=== PATIENT | female | born 1975 | race Caucasian/White ===

== ENCOUNTER 2017-12-22 08:18 | Emergency (ER) | payer MEDICAID, SELFPAY ==
[2017-12-22 08:24] VITALS: BP 158/68; PULSE 69; RESP 18; TEMP 36.7; O2SAT 98
--- NOTE | 2017-12-24 10:51 | ED.GENADUL_ITS ---
Discharge Plan Disposition Patient Disposition: HOME Condition: Good Discharge Details Chief Complaint: DentalOral Clinical Impression: Pain, dental Primary Care Provider: Aidee Leon ED Provider: Rodrigo Rosen Home Meds and New Rx's Prescriptions: New acetaminophen [Mapap Extra Strength] 500 MG tablet 1,000 mg PO Q6H 5 Days Qty: 60 RF: 0 ibuprofen [Motrin IB] 200 MG tablet 600 mg PO Q6H 5 Days Qty: 60 RF: 0 amoxicillin-pot clavulanate [Augmentin] 875-125 mg tablet 1 tab PO BID Qty: 14 RF: 0 No Action ondansetron 4 MG tablet,disintegrating 4 mg PO TID PRN PRN (Reason: Nausea) Qty: 10 RF: 0 trazodone 50 mg Tablet 50 mg PO HS RF: 0 omeprazole 20 mg Tablet,Disintegrat, Delay Rel 20 mg PO DAILY RF: 0 Discharge Instructions Instructions: Toothache (ED) Additional Instructions: Please take the antibiotic as directed. Please follow-up with your dentist as soon as possible. Please take the Tylenol and Motrin. If you notice any worsening of your symptoms, or any new symptoms such as vomiting, diarrhea, fever, chills, shortness of breath, chest pain, numbness, weakness, or fainting , please return immediately to the emergency department for reevaluation. Please follow up with your primary care provider as soon as possible for reassessment and reevaluation. As always, it was a pleasure participating in your medical care today. Referrals: Aidee Leon [Primary Care Provider] - Discharge Data Discharge Date/Time-TO BE ENTERED AT DEPARTURE: 12/22/17 09:20 Medical Decision Making This is a pleasant 42-year-old female who presents with signs and symptoms consistent with dental caries and pulpitis. She demonstrates notable dental caries and is scheduled to have her tooth removed later this month. She comes in for control of the pain. Physical exam demonstrates no signs of an abscess, vital signs demonstrate no signs of systemic infection with no fever or tachycardia. Patient will be given antibiotics for her dental caries, a right inferior alveolar block was performed and the patient had complete resolution of her symptoms. We discussed red flags for which to return including the importance of close follow-up, and continue Tylenol Motrin use. I have extensively reviewed the treatment plan and discharge instructions with the patient. I have addressed all patient concerns at this time. The patient was made aware of what symptoms to monitor for that would warrant a return to the emergency department. Discussed the plan with the patient, they demonstrate verbal understanding and agreement with our assessment and plan at this time. Time out was taken to identify the correct patient, procedure, and site. Risks and benefits were discussed with the patient and consent was obtained. Direct pressure was held over the area prior to the procedure to reduce painful injection. 5 cc?s of Lidocaine 1% and Bupivacaine 0.25% was instilled into the right lower posterior alveolar space by the angle of the jaw with a 27 gauge needle. Complete analgesia was obtained. The patient tolerated the procedure. There were no complications. HPI General Date/Time Provider Initiated Documentation: 12/22/17 08:55 . HPI Narrative: This is a 42-year-old female with a past medical history of dental caries who presents today for evaluation of dental pain. Patient states that for the last 4 days she has had pain in her right lower molar. She has had previous issues with this tooth is scheduled to get it pulled by her dentist. However she states that over the last 24-48 hours the pain has become notably worse. She denies any significant swelling or fevers, however she is having difficulty eating secondary to the pain. She is coming in requesting relief of the pain. Denies any discharge, or any other associated symptoms. She denies any headache, fever, chills, vomiting, diarrhea , chest pain or shortness of breath. She denies any recent surgeries. She denies any pertinent family history. She denies any IV or illicit drug use. Related Data Home Medications Medication Instructions Recorded Confirmed ondansetron 4 mg PO TID PRN PRN #10 tabef 06/23/17 acetaminophen [Mapap Extra 1,000 mg PO Q6H 5 Days #60 tab 12/22/17 Strength] amoxicillin-pot clavulanate 1 tab PO BID #14 tab 12/22/17 [Augmentin] ibuprofen [Motrin Ib] 600 mg PO Q6H 5 Days #60 tab 12/22/17 omeprazole 20 mg PO DAILY 12/22/17 12/22/17 trazodone 50 mg PO HS 12/22/17 12/22/17 Previous Rx's Medication Instructions Recorded ondansetron 4 mg PO TID PRN PRN #10 tabef 06/23/17 acetaminophen [Mapap Extra 1,000 mg PO Q6H 5 Days #60 tab 12/22/17 Strength] amoxicillin-pot clavulanate 1 tab PO BID #14 tab 12/22/17 [Augmentin] ibuprofen [Motrin Ib] 600 mg PO Q6H 5 Days #60 tab 12/22/17 Allergies Allergy/AdvReac Type Severity Reaction Status Date / Time doxycycline Allergy Intermediate shakes/hive Unverified 12/22/17 08:28 s General Stated Complaint: DentalOral HARVEY: 4 Review of Systems Review of Systems All systems reviewed & are unremarkable except as noted in HPI and below PFSH Social History Smoking/Tobacco Use Status: Current every day Exam Narrative Exam Narrative: 1.Const: Well-nourished, Well-developed, appearing stated age 2.Eyes: PERRL, no conjunctival injection, and symmetrical lids. 3.ENT: Atraumatic external nose and ears. Moist MM. Neck: Symmetric, trachea midline, No thyromegaly. Patient demonstrates notable dental caries throughout , 2-3 notable dental caries are present in the right lower molars over tooth 30 and 31. No evidence of peritonsillar abscess, dental abscess, fluctuance, or significant swelling. No significant cervical lymphadenopathy. No signs of airway compromise. 4.CVS: +S1/S2, No murmurs or gallops. Peripheral pulses 2+ and equal in all extremities. Brisk capillary refill in all extremities. 5.RESP: Unlabored respiratory effort. Clear to auscultation bilaterally. No wheezes rales or rhonchi 6.GI: Soft, Nontender/Nondistended, No hepatosplenomegaly. No guarding or rebound. 7.MSK: Normocephalic/Atraumatic, Extremities w/o deformity or ttp No cyanosis or clubbing, Normal movement of all extremities 8.Skin: Warm, Dry. No rashes or lesions. 9.Neuro: carbon electrodes supervisor II-XII grossly intact. Sensation grossly intact, no focal neurologic deficits. 10.Psych: (AAO) x3. Appropriate mood and affect Course Vital Signs Temperature 36.7 C 12/22/17 08:24 Pulse 69 12/22/17 08:24 Respiratory Rate 18 12/22/17 08:24 Blood Pressure 158/68 H 12/22/17 08:24 Pulse Oximetry 98 12/22/17 08:24 Temperature 36.7 C 12/22/17 08:24 Temperature Source Skin 12/22/17 08:24 Pulse 69 12/22/17 08:24 Respiratory Rate 18 12/22/17 08:24 Respiratory Effort 12/22/17 08:26 Blood Pressure 158/68 H 12/22/17 08:24 Blood Pressure Position Sitting 12/22/17 08:24 Pulse Oximetry 98 12/22/17 08:24 Oxygen Delivery Method Room Air 12/22/17 08:24 Oxygen Flow Rate 0 12/22/17 08:24 Pain Level 10 12/22/17 09:18
== END 2017-12-22 09:20 | disposition home or self-care (01) ==
PROVIDERS: Emergency Provider Student in an Organized Health Care Education/Training Program; PCP Nurse Practitioner
DX: R68.84 Jaw pain (principal); S02.5XXA Fracture of tooth (traumatic), initial encounter for closed fracture; X58.XXXA Exposure to other specified factors, initial encounter; K02.9 Dental caries, unspecified
CPT/HCPCS: 99283

== ENCOUNTER 2020-02-21 19:17 | Outpatient (REF) | payer MEDICAID, SELFPAY ==
[2020-02-24 17:50] LABS: COVID-19 RT-PCR UVMMC Result Negative (Negative)
== END 2020-02-21 19:37 ==
LOC: NCHCN 19:17
PROVIDERS: PCP Nurse Practitioner; Visit Provider Nurse Practitioner Family
DX: Z20.828 Contact with and (suspected) exposure to other viral communicable diseases (principal)
CPT/HCPCS: U0003

== ENCOUNTER 2020-04-22 07:51 | Emergency (ER) | payer MEDICAID, SELFPAY ==
[2020-04-22 08:09] VITALS: BP 147/99; PULSE 73; RESP 16; TEMP 36.6; O2SAT 99
--- NOTE | 2020-04-22 08:25 | W.ED.GENAD ---
Discharge Plan Disposition Patient Disposition: HOME Condition: Good Discharge Details Clinical Impression: Back pain Primary Care Provider: Aidee Leon ED Provider: Amina Rao Home Meds and New Rx's Prescriptions: New cyclobenzaprine 10 mg tablet 10 mg PO TID PRNQty: 12 RF: 0 lidocaine [Lidoderm] 5 % adhesive patch,medicated 1 patch topical DAILY Qty: 1 RF: 0 Discharge Instructions Instructions: Back Pain (ED) Additional Instructions: Ibuprofen 600 mg every 8 hours with food Tylenol 650 mg every 6 hours Flexeril for musculoskeletal pain, you may take this 3 times daily, do not take this medication if you have to drive, you should wait 8 hours as it will make you drowsy Lidoderm patch, 12 hours on, 12 hours off, you may apply cool compresses or warm baths may help alleviate your symptoms Light stretching may help Should you have pain longer than 4 minutes 5 to 7 days, I recommend reevaluation With fever, chills, chest discomfort, strength or sensation changes, changes in bowel or bladder shortness of breath, or with any new or worsening complaints, I recommend you return to the emergency room blood pressure recheck by pcp Stand Alone Forms: Work Release Medical Decision Making Patient appears well, she has reproducible tenderness of the back No clinical evidence of cauda equina syndrome or lumbar radiculopathy Suspect pain is musculoskeletal nature: Clear to auscultation, Wells criteria negative for pulmonary embolism and low suspicion clinically without hypoxia, tachypnea, active asthma for months, or recent flights, surgeries, long drives, history of coagulopathy On prior to auscultation bilaterally, no cough or upper respiratory sounds, low suspicion for respiratory illness such as pneumonia She is given low threshold to return and to be reevaluated in 1 week with persistent symptoms, with worsening symptoms which were discussed with patient, she is instructed to return immediately to the emergency room She is discharged home on Flexeril, ibuprofen, Tylenol, and Lidoderm patches in stable condition Blood pressure recheck by primary care physician in the outpatient setting recommended Abdominal tenderness appreciated on exam, question for intra-abdominal process clinically Differential Diagnosis Differential Diagnosis: Musculoskeletal back pain, cholecystitis, pulmonary embolism, pneumonia Medical Records Medical records reviewed: Yes I reviewed the patient's medical records. HPI This 44-year-old female presents with report of right-sided mid back pain. She states she started a new job the weekend the and believes that her chair is causing her back pain. She states that the pain started approximately 24 hours after starting at this position. She states that at the end of the day her pain is worsened. She denies any chest pain, shortness of breath, fever, chills, strength or sensation changes, changes in bowel or bladder. She denies.. Similar pain in the past. Denies abdominal pain, nausea, vomiting, hematuria, dysuria, freq. Denies prior history of ureterolithiasis. She states that with twisting motion, bending, and particularly with flexion of her back and extension, the pain is worsened. She denies history of IV drug abuse, midline back pain, known trauma to the affected area. She denies any radiation of symptoms. General Date/Time Provider Initiated Documentation: 04/22/20 08:04. Related Data Home Medications Medication Instructions Recorded Confirmed cyclobenzaprine 10 mg PO TID PRN #12 tab 04/22/20 lidocaine [Lidoderm] 1 patch TOPICAL DAILY #1 ea 04/22/20 Previous Rx's Medication Instructions Recorded cyclobenzaprine 10 mg PO TID PRN #12 tab 04/22/20 lidocaine [Lidoderm] 1 patch TOPICAL DAILY #1 ea 04/22/20 Allergies Allergy/AdvReac Type Severity Reaction Status Date / Time doxycycline Allergy Intermediate shakes/hive Unverified 12/22/17 08:28 s General Stated Complaint: Nk/Back Pain HARVEY: 4 Review of Systems Narrative: Review of systems negative x7 aside from where indicated in [facility]PI [facility] Social History Smoking/Tobacco Use Status: Current every day Smoking risk assessment performed?: Yes Alcohol Intake: current Alcohol Intake frequency: holidays/special occasions only Drug use: Occasionally Substance use type: marijuana Do you feel safe at home: Yes Do you feel safe in your relationship?: Yes Exam Const General: cooperative, healthy appearing and no acute distress Chest Chest: no crepitus Resp Effort & Inspection: normal respiratory effort Auscultation: clear to auscultation bilaterally Cardio Rate: regular rate Rhythm: regular rhythm GI Inspection: normal to inspection Other: Specifically no right upper quadrant tenderness, no CVA tenderness, no visible sign of trauma, No abdominal bruit or pulsatile mass Back/Spine/Pelvis Back/spine/pelvis image: 1. Reproducible tenderness with palpation, superficial No paraspinal muscle tenderness or midline tenderness Skin General skin exam: no rashes or lesions noted Neuro Other: DTRs intact bilateral upper and lower extremities, strength and sensation intact in bilateral upper and lower extremities Course Vital Signs Vital signs: Vital Signs Temperature 36.6 C 04/22/20 08:09 Pulse 73 04/22/20 08:09 Respiratory Rate 16 04/22/20 08:09 Blood Pressure 147/99 H 04/22/20 08:09 Pulse Oximetry 99 04/22/20 08:09 Temperature 36.6 C 04/22/20 08:09 Temperature Source Skin 04/22/20 08:09 Pulse 73 04/22/20 08:09 Respiratory Rate 16 04/22/20 08:09 Respiratory Effort 04/22/20 08:11 Blood Pressure 147/99 H 04/22/20 08:09 Blood Pressure Position Standing 04/22/20 08:09 Pulse Oximetry 99 04/22/20 08:09 Oxygen Delivery Method Room Air 04/22/20 08:09 Oxygen Flow Rate 0 04/22/20 08:09 Pain Level 8 04/22/20 08:09
[2020-04-22] MEDS: Cyclobenzaprine 10 MG TAB PO (08:32)
[2020-04-22] MEDS: Lidocaine 5% Patch 1 PATCH TP (08:32)
[2020-04-22] MEDS: Ketorolac 15 MG/ML VIAL IM (08:33)
== END 2020-04-22 08:45 | disposition home or self-care (01) ==
PROVIDERS: Emergency Provider Physician Assistant; PCP Nurse Practitioner
DX: M54.9 Dorsalgia, unspecified (principal)
CPT/HCPCS: 96372; 99283; J1885

== ENCOUNTER 2020-07-09 11:18 | Outpatient (REF) | payer MEDICAID, SELFPAY ==
[2020-07-10 15:14] LABS: COVID-19 RT-PCR UVMMC Result Negative (Negative)
== END 2020-07-09 11:19 | disposition home or self-care (01) ==
LOC: NCHCN 11:18
PROVIDERS: PCP Nurse Practitioner; Visit Provider Nurse Practitioner Family
DX: Z20.822 Contact with and (suspected) exposure to COVID-19 (principal)
CPT/HCPCS: U0003

== ENCOUNTER 2021-03-03 12:10 | Outpatient (REF) | payer MEDICAID, SELFPAY ==
[2021-03-03 14:43] LABS: HCT 41.1 % (36.0-46.0); HGB 13.4 g/dL (11.2-15.7); MCH 27.4 pg (27.0-33.0); MCHC 32.6 % (32.0-36.0); MPV 11.4 fL (8.0-11.0); Platelet Count 346 10^3/uL (130-400); RBC 4.89 10^6/uL (3.93-5.22); RDW 15.4 % (11.7-14.6); RDW-SD 46.7 fL; WBC 8.56 10^3/uL (4.4-10.8)
[2021-03-03 15:24] LABS: Anion Gap 13.2 mmol/L (3-11); BUN 14 mg/dL (7-18); CO2 20.8 mmol/L (21.0-32.0); Calcium 9.3 mg/dL (8.5-10.1); Chloride 105 mmol/L (98-107); Estimated GFR 59.96 (mL/min/1.73m2); Glucose 91 mg/dL (74-106); Potassium 4.3 mmol/L (3.5-5.1); Sodium 139 mmol/L (136-145); TSH (W/Ref FT4) 1.44 uIU/mL (0.36-3.74)
[2021-03-04 00:24] LABS: Vitamin D 25 Total 17.5 ng/mL (30-100)
[2021-03-04 10:04] LABS: Iron 83 ug/dL (50-170); Total Iron Binding Capacity 383 ug/dL (250-450); Transferrin Sat 22 % (15-50)
== END 2021-03-03 12:11 | disposition home or self-care (01) ==
LOC: NCHCN 12:10
PROVIDERS: PCP Nurse Practitioner; Visit Provider Nurse Practitioner Family
DX: R53.83 Other fatigue (principal)
CPT/HCPCS: 80048; 82306; 85027; 83540; 83550; 84443

== ENCOUNTER 2021-05-03 11:02 | Outpatient (CLI) | payer MEDICAID, SELFPAY ==
--- NOTE | 2021-05-03 09:30 | DI.RAD_ITS ---
Exam(s) XR HAND RT COMPLETE EXAM: XR HAND RT COMPLETE CLINICAL HISTORY: right middle finger trigger. TECHNIQUE: 2D digital imaging was performed. COMPARISON: No exams were available for comparison FINDINGS: BONES: No acute fracture is present. No bony destructive lesion is seen. JOINTS: No dislocation present. SOFT TISSUE: Normal. IMPRESSION: Unremarkable radiographs of the right hand. DATA REPOSITORY: RADIATION DOSE DELIVERED:
== END 2021-05-03 11:03 | disposition home or self-care (01) ==
LOC: DIORS 11:03
PROVIDERS: PCP Nurse Practitioner; Referring Provider Nurse Practitioner; Visit Provider Physician Assistant
DX: M65.331 Trigger finger, right middle finger (principal)
CPT/HCPCS: 73130

== ENCOUNTER 2021-05-11 10:27 | Emergency (ER) | payer MEDICAID, SELFPAY ==
[2021-05-11 10:34] VITALS: BP 148/87; PULSE 59; RESP 16; O2SAT 99
[2021-05-11 10:37] VITALS: BP 149/87; PULSE 75
--- NOTE | 2021-05-11 11:02 | DI.US_ITS ---
Exam(s) US PELVIS TRANSVAGINAL EXAM: US PELVIS TRANSVAGINAL CLINICAL HISTORY: pelvic pain, menorrhagia, dysmenorrhea TECHNIQUE: Ultrasound of the pelvis was performed both transabdominal and transvaginal. COMPARISON: CT ABD PELVIS WITH CONTRAST from 06/23/2017 FINDINGS: UTERUS: Retroverted Measures 10 cm length x 5.6 cm AP x 5.8 cm wide. There are no uterine fibroids. Endometrial thickness measures 3.8 mm. There is a finding in the endometrium at the level the fundus which is possibly a polyp measuring approximately 7 x 3 millimeters. There is small amount of fluid in the endometrial canal. There is also a somewhat complex appearance of the lower uterine segment which is possibly related to blood products at this level RIGHT OVARY: Measures 2.9 x 1.6 x 3.0 cm There is a cyst in the right ovary measuring 1.4 x 1.5 x 1.8 cm, appearing unilocular. There is a sm all amount of fluid around the right ovary. LEFT OVARY: Measures 3.2 x 2.2 x 2.2 cm No significant cysts nor masses evident in the left ovary. CUL-DE-SAC: Small amount of fluid noted within the cul-de-sac IMPRESSION: 1. Possible polyp in the upper endometrium and small amount of fluid in the endometrial canal and com plex contents of the lower uterine segment which probably represent blood products. 2. There is a 1.5 x 1.8 x 1.4 cm cyst in the right ovary which is probably follicular dominant cyst. 3. There is small amount of fluid around the right ovary and in the cul-de-sac. Appropriate follow-up recommended. DATA REPOSITORY:
[2021-05-11] MEDS: Normal Saline 500 ML IV (11:23)
[2021-05-11 11:26] LABS: Abs Immature Grans 0.02 10^3/uL (0.0-0.06); Absolute Basophil Count 0.07 10^3/uL (0.0-0.2); Absolute Eosinophil Count 0.13 10^3/uL (0.0-0.7); Absolute Lymphocyte Count 2.16 10^3/uL (1.2-3.4); Absolute Monocyte Count 0.56 10^3/uL (0.1-0.8); Absolute Neutrophil Count 4.23 10^3/uL (1.2-6.7); Eosinophils % 1.8; HCT 38.5 % (36.0-46.0); HGB 12.9 g/dL (11.2-15.7); Immature Grans % 0.3; Lymphocytes % 30.1; MCHC 33.5 % (32.0-36.0); MCV 83.5 fL (80-95); MPV 10.7 fL (8.0-11.0); Monocytes % 7.8; Nucleated RBC 0 %; Platelet Count 311 10^3/uL (130-400); RBC 4.61 10^6/uL (3.93-5.22); RDW 14.6 % (11.7-14.6); RDW-SD 44.3 fL; WBC 7.17 10^3/uL (4.4-10.8)
[2021-05-11] MEDS: Lidocaine 5% Patch 2 PATCH TP (11:27)
[2021-05-11 11:32] VITALS: BP 121/81; PULSE 51; O2SAT 98
[2021-05-11 11:42] LABS: ALT 34 U/L (14-59); AST 15 U/L (15-37); Albumin 3.7 g/dL (3.4-5.0); Alkaline Phosphatase 64 U/L (46-116); Anion Gap 10.4 mmol/L (3-11); BUN 11 mg/dL (7-18); Bilirubin, Total 0.3 mg/dL (0.2-1.0); CO2 21.6 mmol/L (21.0-32.0); CREATININE 0.9 mg/dL (0.55-1.02); Calcium 9.1 mg/dL (8.5-10.1); Chloride 108 mmol/L (98-107); Glucose 97 mg/dL (74-106); Potassium 4.2 mmol/L (3.5-5.1); Sodium 140 mmol/L (136-145); Total Protein 7.2 g/dL (6.4-8.2)
--- NOTE | 2021-05-11 11:58 | ED.GENADUL_ITS ---
Discharge Plan Disposition Patient Disposition: HOME Condition: Stable Discharge Details Clinical Impression: Ovarian cyst rupture Primary Care Provider: Aidee Leon ED Provider: Amina Rao Home Meds and New Rx's Prescriptions: Continued medroxyprogesterone [Depo-Provera] 150 mg/mL syringe 150 mg IM .Q13W 0RF cyclobenzaprine 10 mg tablet 10 mg PO TID PRNQty: 12 0RF lidocaine [Lidoderm] 5 % adhesive patch,medicated 1 patch topical DAILY Qty: 1 0RF Rx Instructions: leave on most painful area for up to 12 hrs cholecalciferol (vitamin D3) [Vitamin D3] 25 mcg (1,000 unit) Capsule 25 mcg PO DAILY 0RF Discharge Instructions Instructions: Ovarian Cyst (ED) Additional Instructions: Take ibuprofen and Tylenol as needed for pain I am writing for Lidoderm patches should you need them Please follow-up with [facility] listed below and return earlier should you have new or worsening complaints including new or worsening complaints Stand Alone Forms: Work Release Referrals: Zoya Mendosa MD [ [facility] STAFF PHYSICIAN] - Aidee Leon [Primary Care Provider] - Discharge Data Discharge Date/Time-TO BE ENTERED AT DEPARTURE: 05/11/21 13:54 Medical Decision Making Patient with free fluid on her ultrasound, likely consistent with ovarian cyst rupture Hemodynamically stable Mildly thickened endometrium Referred to [facility] 1 pad throughout this encounter, no indication for emergent intervention We will take ibuprofen and Tylenol as needed for pain For quadrant for pain uncontrolled with ibuprofen and Tylenol Risk of addiction discussed Return precautions discussed and patient expressed understanding Of note, patient was mildly bradycardic, she is asymptomatic and I suspect this is her baseline Blood in urine, likely consistent with menses, will recheck with PCP Medical Records Medical records reviewed: Yes I reviewed the patient's medical records. Lab Data Lab results reviewed: Yes I reviewed the patient's lab results. HPI General Date/Time Provider Initiated Documentation: 05/11/21 10:30 . HPI Narrative: 45-year-old female presents with lower abdominal pain in the suprapubic region. Patient states that she started her menses 24 hours ago. In a monogamous relationship, declines risk of sexually transmitted disease denies any fever, diarrhea, blood in stool. She states she is having large clots approximately quarter size but has not gone through more than 2 or 3 pads or tampons since the onset of menses. She states that the cough very typical for her. She did have a Depo shot approximately few months ago, however this is not a new medication for patient. She denies any chance of . She describes the pain as cramping. She denies any urinary symptoms. Related Data Home Medications Medication Instructions Recorded Confirmed cyclobenzaprine 10 mg tablet 10 mg PO TID PRN #12 tab 04/22/20 05/03/21 lidocaine 5 % topical patch 1 patch TOPICAL DAILY #1 ea 04/22/20 05/03/21 (Lidoderm) medroxyprogesterone 150 mg/mL 150 mg IM .Q13W ml 03/11/21 05/11/21 intramuscular syringe (Depo-Provera) cholecalciferol (vitamin D3) 25 25 mcg PO DAILY 05/11/21 05/11/21 mcg (1,000 unit) capsule (Vitamin D3) Previous Rx's Medication Instructions Recorded cyclobenzaprine 10 mg tablet 10 mg PO TID PRN #12 tab 04/22/20 lidocaine 5 % topical patch 1 patch TOPICAL DAILY #1 ea 04/22/20 (Lidoderm) Allergies Allergy/AdvReac Type Severity Reaction Status Date / Time doxycycline Allergy Intermediate shakes/hive Unverified 05/11/21 10:40 s General Stated Complaint: Abd Prob HARVEY: 3 Review of Systems All systems reviewed & are unremarkable except as noted in HPI and below PFSH All Active Problems (Updated 05/11/21 @ 13:40 by EMELI Ferrera) Ovarian cyst rupture (Acute) Trigger middle finger of right hand (Acute) Depo-Medrol injection: 05/03/2021 Fatigue (Acute) Medical History (Updated 05/11/21 @ 13:40 by EMELI Ferrera) Anxiety with depression Clostridioides difficile infection Diverticulitis Dupuytren's disease GERD (gastroesophageal reflux disease) History of HPV infection Hx gestational diabetes Hx of carpal tunnel syndrome Infectious disease exposure Insomnia Reflux esophagitis Social History (Updated 03/11/21 @ 09:46 by Heike Moseley) Smoking/Tobacco Use Status: Former Tobacco Use Smoking risk assessment performed?: Yes Alcohol Intake: current Alcohol Intake frequency: holidays/special occasions only Drug use: Occasionally Substance use type: marijuana Do you feel safe at home: Yes Do you feel safe in your relationship?: Yes Exam Const General: cooperative, comfortable and no acute distress Eyes Sclera: sclerae normal Resp Effort & Inspection: normal respiratory effort Cardio Rate: regular rate GI Other: Suprapubic tenderness, no rebound or guarding, no CVA tenderness Skin General skin exam: no rashes or lesions noted Neuro General: patient alert Extrem Other: Distal pulses intact Course Vital Signs Vital signs: Vital Signs Pulse 59 L 05/11/21 10:34 Respiratory Rate 16 05/11/21 10:34 Blood Pressure 148/87 H 05/11/21 10:34 Pulse Oximetry 99 05/11/21 10:34 Pulse 51 L 05/11/21 11:32 Respiratory Rate 16 05/11/21 10:34 Respiratory Effort Non-Labored 05/11/21 10:42 Blood Pressure 121/81 05/11/21 11:32 Blood Pressure Mean 91 05/11/21 11:32 Blood Pressure Position Sitting 05/11/21 10:34 Pulse Oximetry 98 05/11/21 11:32 Oxygen Delivery Method Room Air 05/11/21 10:34 Oxygen Flow Rate 0 05/11/21 10:34 Lab/Test Results Lab/Test Results: Laboratory Tests Range/Units 05/11/21 05/11/21 11:15 11:15 WBC (4.4-10.8) 10^3/uL 7.17 RBC (3.93-5.22) 10^6/uL 4.61 Hgb (11.2-15.7) g/dL 12.9 Hct (36.0-46.0) % 38.5 MCV (80-95) fL 83.5 MCH (27.0-33.0) pg 28.0 MCHC (32.0-36.0) % 33.5 RDW (11.7-14.6) % 14.6 Plt Count (130-400) 10^3/uL 311 MPV (8.0-11.0) fL 10.7 Immature Gran % 0.3 Neutrophils % 59.0 Lymphocytes % 30.1 Monocytes % 7.8 Eosinophils % 1.8 Basophils % 1.0 Nucleated RBC % % 0 Absolute Neutrophils (1.2-6.7) 10^3/uL 4.23 Absolute Lymphocytes (1.2-3.4) 10^3/uL 2.16 Absolute Monocytes (0.1-0.8) 10^3/uL 0.56 Absolute Eosinophils (0.0-0.7) 10^3/uL 0.13 Absolute Basophils (0.0-0.2) 10^3/uL 0.07 Sodium (136-145) mmol/L 140 Potassium (3.5-5.1) mmol/L 4.2 Chloride (98-107) mmol/L 108 H Carbon Dioxide (21.0-32.0) mmol/L 21.6 Anion Gap (3-11) mmol/L 10.4 BUN (7-18) mg/dL 11 Creatinine (0.55-1.02) mg/dL 0.9 Estimated GFR/1.73 m2 (mL/min/1.73m2) >= 60.00 Glucose (74-106) mg/dL 97 Calcium (8.5-10.1) mg/dL 9.1 Total Bilirubin (0.2-1.0) mg/dL 0.3 AST (15-37) U/L 15 ALT (14-59) U/L 34 Alkaline Phosphatase (46-116) U/L 64 Total Protein (6.4-8.2) g/dL 7.2 Albumin (3.4-5.0) g/dL 3.7 POC- Test(urine) Negative
[2021-05-11 12:04] LABS: Bilirubin Negative (Negative); Blood Moderate (Negative); Clarity Clear (Clear); Glucose Negative (Negative); Ketones Negative (Negative); Leukocyte Esterase Negative (Negative); Nitrite Negative (Negative); Specific Gravity >= 1.030 (1.005-1.025); Urobilinogen 0.2 EU/dL (Up TO 0.2); pH 6.5 (5-8)
[2021-05-11 12:19] LABS: Bacteria Negative HPF (Negative); C & S Indicated? No; Casts Negative LPF (Negative); Crystals Negative HPF (Negative); Epithelial Cells Rare HPF (Negative); Mucus Trace (Negative); WBC Negative HPF (0-5)
[2021-05-11] MEDS: Ketorolac 15 MG/ML VIAL IVP (13:28)
[2021-05-11 13:39] VITALS: BP 121/81; PULSE 51; RESP 14; TEMP 36.7; O2SAT 98
== END 2021-05-11 13:54 | disposition home or self-care (01) ==
PROVIDERS: Emergency Provider Physician Assistant; PCP Nurse Practitioner Family
DX: N83.291 Other ovarian cyst, right side (principal); R93.89 Abnormal findings on diagnostic imaging of other specified body structures
CPT/HCPCS: 80053; 81025; 96361; 96374; 99284; 76830; 76856; 81003; 81015; 85025; 99283; J1885

== ENCOUNTER → 2021-06-28 02:35 | Outpatient (CLI) | payer MEDICAID, SELFPAY | PROVIDERS: PCP Nurse Practitioner Family; Visit Provider Obstetrics & Gynecology ==

== ENCOUNTER 2021-08-05 07:49 | Emergency (ER) | payer MEDICAID, SELFPAY ==
[2021-08-05 07:56] VITALS: BP 154/87; PULSE 99; RESP 16; TEMP 36.9; O2SAT 97
--- NOTE | 2021-08-05 08:08 | ED.GENADUL_ITS ---
Discharge Plan Disposition Patient Disposition: HOME Condition: Stable Discharge Details Clinical Impression: Exudative pharyngitis Primary Care Provider: Subha Parker ED Provider: Shahid Olvera Home Meds and New Rx's Prescriptions: New penicillin V potassium 500 mg tablet 500 mg PO TID 9 Days Qty: 27 0RF Continued medroxyprogesterone [Depo-Provera] 150 mg/mL syringe 150 mg IM .Q13W Qty: 1 4RF Rx Instructions: Bring to appt lidocaine [Lidoderm] 5 % adhesive patch,medicated 1 patch topical DAILY Qty: 1 0RF Rx Instructions: leave on most painful area for up to 12 hrs cholecalciferol (vitamin D3) [Vitamin D3] 25 mcg (1,000 unit) Capsule 25 mcg PO DAILY Discharge Instructions Instructions: Pharyngitis (ED) Additional Instructions: Small, frequent sips of fluids to maintain good hydration. I recommend popsicles as well. Xeie-eft-[id number] lozenges such as Cepacol will aid your sore throat. Take penicillin as prescribed until finished. Every 6 hours today and then 3 times per day. Return to the ER for any acute concerns Medical Decision Making 45-year-old female presents with right-sided sore throat for 2 days. No cough or respiratory symptoms. She does have some mild right ear pain. Her exam is consistent with acute right-sided exudative pharyngitis without evidence of abscess development. Patient counseled and placed on penicillin. She is instructed as to home care as well as indications to seek reevaluation. Stable for discharge. HPI General Mode of arrival: ambulatory . Date/Time Provider Initiated Documentation: 08/05/21 07:58 . Limitations to Documentation: no limitations . Information obtained by: patient . History of Present Illness 45 year old F presents to the emergency department with the chief complaint of Right sore throat, described as moderate, Quality is described as dull and constant, and is localized to the mouth and right. Patient reports no radiation. Patient started experiencing this hour(s) and it has been constant. No relieving factors improve symptom(s), No exacerbating factors reported . Patient notes denies chest pain and cough. Related Data Home Medications Medication Instructions Recorded Confirmed lidocaine 5 % topical patch 1 patch topical DAILY #1 ea 04/22/20 08/05/21 (Lidoderm) cholecalciferol (vitamin D3) 25 25 mcg PO DAILY 05/11/21 08/05/21 mcg (1,000 unit) capsule (Vitamin D3) medroxyprogesterone 150 mg/mL 150 mg IM .Q13W #1 mL 05/14/21 08/05/21 intramuscular syringe (Depo-Provera) penicillin V potassium 500 mg 500 mg PO TID 9 days #27 tabs 08/05/21 tablet Previous Rx's Medication Instructions Recorded lidocaine 5 % topical patch 1 patch topical DAILY #1 ea 04/22/20 (Lidoderm) medroxyprogesterone 150 mg/mL 150 mg IM .Q13W #1 mL 05/14/21 intramuscular syringe (Depo-Provera) penicillin V potassium 500 mg 500 mg PO TID 9 days #27 tabs 08/05/21 tablet Allergies Allergy/AdvReac Type Severity Reaction Status Date / Time doxycycline Allergy Intermediate shakes/hive Verified 08/05/21 08:01 s General Stated Complaint: Sorethroat HARVEY: 4 Review of Systems Narrative: 6 systems reviewed and otherwise negative PFSH All Active Problems Exudative pharyngitis (Acute) Trigger middle finger of right hand (Acute) Depo-Medrol injection: 05/03/2021 Fatigue (Acute) Medical History Anxiety with depression Clostridioides difficile infection Contraceptive surveillance Diverticulitis Dupuytren's disease GERD (gastroesophageal reflux disease) History of HPV infection Hx gestational diabetes Hx of carpal tunnel syndrome Infectious disease exposure Insomnia Reflux esophagitis Social History Smoking/Tobacco Use Status: Former Tobacco Use Smoking risk assessment performed?: Yes Alcohol Intake: current Alcohol Intake frequency: holidays/special occasions only Drug use: Daily Substance use type: marijuana Do you feel safe at home: Yes Do you feel safe in your relationship?: Yes Exam Narrative Exam Narrative: GEN: awake, alert, oriented 3. Pleasant, well groomed, interactive. HEAD: Normocephalic, atraumatic ENT: Mucous membranes moist, oropharynx with pharyngeal erythema, right-sided exudate without swelling and uvula midline, tympanic membranes visualized and nonerythematous, right TM slightly distended, external ear exam unremarkable EYES: PERRL, EOMI NECK: Full ROM, no ARMANDO, no menigismus CHEST/RESP: Nontender, clear to auscultation bilateral, no wheeze/rhonchi/rales CARDIOVASCULAR: RRR, no murmur, rub patricia. EXT: Full ROM, no edema, no rash Neuro: Grossly normal neurologic exam, conversant, interactive. Psych: Speech fluent, thoughts congruent, affect normal Course Vital Signs Vital signs: Vital Signs Temperature 36.9 C 08/05/21 07:56 Pulse 99 H 08/05/21 07:56 Respiratory Rate 16 08/05/21 07:56 Blood Pressure 154/87 H 08/05/21 07:56 Pulse Oximetry 97 08/05/21 07:56 Temperature 36.9 C 08/05/21 07:56 Temperature Source Temporal Artery Scan 08/05/21 07:56 Pulse 99 H 08/05/21 07:56 Respiratory Rate 16 08/05/21 07:56 Respiratory Effort 08/05/21 07:56 Blood Pressure 154/87 H 08/05/21 07:56 Blood Pressure Position Sitting 08/05/21 07:56 Pulse Oximetry 97 08/05/21 07:56 Oxygen Delivery Method Room Air 08/05/21 07:56 Oxygen Flow Rate 0 08/05/21 07:56 Pain Level 9 08/05/21 07:56
[2021-08-05] MEDS: Penicillin V POTASSIUM 500 MG TAB, 4 TABS/BTL PO (08:21)
--- OUTSIDE RECORDS SUMMARY | 2021-08-05 08:26 | XMS_ITS ---
:1975 Author Care Team Providers Name Role Phone ANATOLYHECTOR MILLER Primary Care Provider [phone] ANATOLY MILLER Referring Provider [phone] Allergies Code Code System Name Reaction Severity Status Onset 3640 RxNorm Doxycycline ? ? Active ? Medications Name Status Start Date Stop Date ? ? Cipro XR 500 mg tablet,extended release Completed ? 05/02/2017 Take 1 tablet every day by oral route. omeprazole 20 mg capsule,delayed release Active ? Not available Take 1 capsule every day by oral route. Probiotic Active ? Not available Takes once daily trazodone 100 mg tablet Active ? Not avai lable Take 1 tablet as needed by oral route at bedtime. Zofran 4 mg tablet Completed ? 05/02/2017 Take 1 tablet as needed by oral route. Problems Name Status Onset Date Source ? Anxiety Active 03/23/2017 ? Depressive Disorder Active 03/23/2017 ? Insomnia Active 03/23/2017 ? Diverticulitis Active 03/23/2017 ? Pain in Right Foot Active 03/23/2017 ? Gastroesophageal Reflux Disease Active ? ? Procedures Date Name Performed by ? ? Tubal Ligation Information not avai lable Notes: REVERSAL ? Delivery Information not avai lable ? Foot Surgery Information not avai lable Notes: RT 03/23/2017 XR, Foot, 3 or More View DO Not Use [facility] Radiology [address] [place] [address] [id number] (Work Place) Results Lab Results Date Name Specimen Result Interpretation Description Value Range Status Address ? 09/26/2017 [place]rease, ? Josefa Test negative ? Final [facility] Qualitative, Labo ratory & Tissue Pathology: [address] [place] [address] Past Encounters None recorded. Social History Tobacco Smoking Status Current Every Day Smoker Notes: 02/2018 Vaccine List None recorded. Plan of Care Reminders Provider Appointments None recorded. ? ? Lab None recorded. ? ? Referral None recorded. ? ? Procedures None recorded. ? ? Surgeries None recorded. ? ? Imaging None recorded. ? ? Vitals 09/14/2017 09:45AM FOLLOW UP Height Weight BMI Blood Pressure 167.64 cm 98.43 kg 35 kg/m2 116/78 mm[Hg] 05/02/2017 12:30PM PODIATRY POST OP 2 Blood Pressure 136/80 mm[Hg] 04/24/2017 01:15PM PODIATRY POST-OP 1 Weight Blood Pressure 87.54 kg 124/58 mm[Hg] 03/29/2017 03:30PM NEW PATIENT Weight Blood Pressure 87.54 kg 136/78 mm[Hg]
== END 2021-08-05 08:25 | disposition home or self-care (01) ==
LOC: ER 08:25
PROVIDERS: Emergency Provider Emergency Medicine; PCP Nurse Practitioner Family
DX: J02.9 Acute pharyngitis, unspecified (principal); H92.01 Otalgia, right ear
CPT/HCPCS: 99283

== ENCOUNTER 2021-09-22 06:51 | Day surgery (SDC) | payer MEDICAID, SELFPAY ==
[2021-09-22 07:09] VITALS: BP 130/87; PULSE 72; RESP 16; TEMP 36.7; O2SAT 99
[2021-09-22] MEDS: Sodium Bicarbonate 50 MEQ/50 ML VIAL (09:33)
[2021-09-22] MEDS: Lidocaine 1.5 % Pres-Free W/EPI 1/200,000 30 ML VIAL (09:33)
[2021-09-22 09:44] VITALS: BP 144/85; PULSE 58; RESP 16; TEMP 36.7; O2SAT 98
--- NOTE | 2021-09-22 09:56 | W.PM.DSUDISC ---
Discharge Plan Disposition Patient Disposition: HOME Condition: Good Discharge Details Reason For Visit: RMF Trigger Finger Attending Provider: Moustapha Rouse Primary Care Provider: Subha Parker Home Meds and New Rx's Prescriptions: New ibuprofen 600 mg tablet 600 mg PO TID PRN (Reason: pain) Qty: 30 3RF acetaminophen 500 mg tablet 1,000 mg PO Q8H PRN (Reason: pain) Qty: 60 3RF Continued medroxyprogesterone [Depo-Provera] 150 mg/mL syringe 150 mg IM .Q13W Qty: 1 4RF Rx Instructions: Bring to appt cholecalciferol (vitamin D3) [Vitamin D3] 25 mcg (1,000 unit) Capsule 25 mcg PO DAILY Probiotic 10 billion cell Capsule 10,000 mmu cells PO DAILY Discharge Instructions Stand Alone Forms: Nasim Hightower Finger Release Referrals: Moustapha Rouse MD [ [facility] STAFF PHYSICIAN] - Activity:: Elevate Remove Dressings/Wound Care:: 48 hours Shower/Bathe:: 48 hours Diet:: As Tolerated Discharge Orders Discharge Orders: Discharge Order (Routine); Ordered 09/22/21 Ordered By: Moustapha Rouse
--- NOTE | 2021-09-22 11:10 | W.PM.OP ---
Date of service: 09/22/21 Time of Service: 09:30 Operative Note Operative Note DATE OF PROCEDURE: 09/22/21 PRE-OP DIAGNOSIS: Right Middle Finger Trigger Finger POST-OP DIAGNOSIS: same PROCEDURE: Trigger Finger Release - Right Middle Finger SURGEON: Moustapha Rouse ANESTHESIA TYPE: Local By Surgeon Refer to Anesthesia Record ESTIMATED BLOOD LOSS: 0 PATHOLOGY: none sent COMPLICATIONS: None Patient was transported to: same day Patient's condition: stable Indications: I have seen Christin in clinic for symptoms of a trigger finger. The catching, clicking, locking, and pain limited function. The diagnosis of trigger finger was evident. The symptoms had not responded to conservative measures. I discussed trigger finger release with the patient. I reviewed the risks of the procedure to include, but not limited to, bleeding, infection, pain, stiffness, incomplete release, damage to nerves or vessels, continued catching, recurrence. Despite these risks, the patient elected to proceed. Findings: There was a tightened A1 deuce which was released. The flexor tendons were inspected and the patient was able to move the finger without any catching, clicking, or locking. Procedure Description: Christin was greeted in the preoperative holding area where the correct side was identified and marked. The consent was reviewed with the patient and signed. All questions were answered. She was taken back to the operating room. The patient was placed into the supine position on the operating room table with the right arm on an arm board. All bony prominences were well padded. No prophylactic antibiotics were administered since this was a clean, elective hand surgical case. The right arm was then prepped with Chloraprep and draped in a standard fashion with stockinette and extremity drape. A timeout to confirm correct identity, side and site, procedure, allergies, anesthesia, and medical concerns was performed. The surgical site was marked as a longitudinal incision directly over the A1 deuce of the involved digit. This was confirmed with palpation during finger flexion. This area, overlying the metacarpal head, was then anesthetized with 1% Lidocaine. The patient tolerated this well and once the anesthetic had setup, the procedure began. A longitudinal incision was made through skin only, approximately 1cm. The deep tissues were dissected bluntly. Once the A1 deuce and flexor tendons were identified the soft tissue including neurovascular structures were retracted medially and laterally. There were no crossing structures over the A1 deuce. The proximal edge of the deuce was identified and the deuce was incised with tenotomy scissors. There was a release of the tendons once this was fully released. The tendons were then removed from the wound and inspected. Excess synovium was resected. The tendons were then returned and the patient was asked to move the finger into deep flexion and back to extension. There was no recreation of the pre-operative symptoms. The hand was then once more inspected for any A0 deuce or area of possible constriction. The wound was then irrigated and the skin was closed with a 4-0 Nylon. This was dressed with gauze and a Conform dressing. The patient tolerated the procedure well and was returned to the Same Day Surgery area in a stable condition suffering no known complication.
== END 2021-09-22 10:10 | disposition home or self-care (01) ==
PROVIDERS: PCP Nurse Practitioner Family; Visit Provider Student in an Organized Health Care Education/Training Program
PROC: (CPT 26055; principal; 2021-09-22 09:45)
DX: M65.331 Trigger finger, right middle finger (principal)
CPT/HCPCS: 26055

== ENCOUNTER 2021-11-09 13:20 | Day surgery (SDC) | payer MEDICAID, SELFPAY ==
--- NOTE | 2021-11-09 10:23 | W.PM.DSUDISC ---
Discharge Plan Disposition Patient Disposition: HOME Condition: Good Discharge Details Reason For Visit: RMF REVISION TRIGGER Attending Provider: Moustapha Rouse Primary Care Provider: Subha Parker Home Meds and New Rx's Prescriptions: New hydrocodone-acetaminophen 5-325 mg tablet 1 tab PO Q6H PRN (Reason: pain) Qty: 4 0RF Continued medroxyprogesterone [Depo-Provera] 150 mg/mL syringe 150 mg IM .Q13W Qty: 1 4RF Rx Instructions: Bring to appt cholecalciferol (vitamin D3) [Vitamin D3] 25 mcg (1,000 unit) Capsule 25 mcg PO DAILY Probiotic 10 billion cell Capsule 10,000 mmu cells PO DAILY ibuprofen 600 mg tablet 600 mg PO TID PRN (Reason: pain) Qty: 30 3RF acetaminophen 500 mg tablet 1,000 mg PO Q8H PRN (Reason: pain) Qty: 60 3RF Discharge Instructions Additional Instructions: Trigger Finger Revision Discharge Instructions Activity: You may use your fingers for light activity. You should limit any excessive motion or forceful gripping until the sutures have been removed. Dressings: You should keep the initial surgical dressing in place for at least 3 days. You may remove your dressings and get the wound wet after 3 days. You should keep the dressings and the wound clean at all times. You may keep the initial dressing in place until your follow-up but keep the wound covered with light gauze until the sutures are removed. Medications: - You should take Tylenol and Ibuprofen around the clock as prescribed or per formation fracturing operator's recommendations. - You do have a prescription for Hydrocodone for breakthrough pain if necessary. Follow-up: 7-10 days for wound check and suture removal. Referrals: Moustapha Rouse MD [ [facility] STAFF PHYSICIAN] - 11/18/21 8:30 am Activity:: Elevate Remove Dressings/Wound Care:: 72 hours Shower/Bathe:: 72 hours Diet:: As Tolerated Discharge Orders Discharge Orders: Discharge Order (Routine); Ordered 11/09/21 Ordered By: Tanvi Mcdaniel
[2021-11-09 13:49] VITALS: BP 131/89; PULSE 85; RESP 20; TEMP 36.6; O2SAT 99
[2021-11-09] MEDS: Sodium Bicarbonate 50 MEQ/50 ML VIAL (14:30)
[2021-11-09] MEDS: Lidocaine 1% Multi-Dose W/EPI 1/100,000 50 ML VIAL (14:30)
[2021-11-09 14:55] VITALS: BP 125/79; PULSE 64; RESP 16; TEMP 36.4; O2SAT 97
--- NOTE | 2021-11-09 20:21 | ROE_ITS ---
Date of service: 11/10/21 Time of Service: 14:30 Operative Note Operative Note DATE OF PROCEDURE: 11/09/21 PRE-OP DIAGNOSIS: Recurrent Right Middle Finger Trigger Finger and Flexor Tenosynovitis POST-OP DIAGNOSIS: same PROCEDURE: Revision A1 Deuce Release - Right Middle Finger with Flexor Tenosynovectomy SURGEON: Moustapha Rouse ANESTHESIA TYPE: Local By Surgeon Refer to Anesthesia Record ESTIMATED BLOOD LOSS: 0 PATHOLOGY: none sent TOURNIQUET TIME: 0 COMPLICATIONS: None Patient was transported to: same day Patient's condition: stable Indications: Christin is a 46-year-old who has had worsening symptoms about her right middle finger. Initially she had some good response to her trigger finger release but has since developed pain, swelling, stiffness, clicking. Given the recurrence of the symptoms which have only worsened, I recommended revision of the trigger finger along with an aggressive tenosynovectomy. I reviewed the risk of the procedure with her to include bleeding, infection, pain, stiffness, damage to nerves and vessels, damage to muscle and tendons. Despite these risks, she elected to proceed. Findings: There was a remnant of the distal aspect of the A1 deuce still present which was released. There is also thickened inflammatory tissue seen surrounding the flexor tendon in the region of the surgery. This was excised in its entirety. Procedure Description: Christin was greeted in the preoperative holding area where the correct side was identified and marked. The consent was reviewed with the patient and signed. All questions were answered. She was taken back to the operating room. The patient was placed into the supine position on the operating room table with the right arm on an arm board. All bony prominences were well padded. No prophylactic antibiotics were adminis tered since this was a clean, elective hand surgical case. The right arm was then prepped with Chloraprep and draped in a standard fashion with stockinette and extremity drape. A timeout to confirm correct identity, side and site, procedure, allergies, anesthesia, and medical concerns was performed. The surgical site was as a continuation of the incision within the distal palmar crease with a Tete type extension moving distally over the A1 deuce of the involved digit. This area, overlying the metacarpal head, was then anesthetized with 1% Lidocaine with epinephrine. The patient tolerated this well and once the anesthetic had setup, the procedure began. The incision was first carried through skin only. The deep tissues were dissected bluntly. The neurovascular structures were retracted medially and laterally. The tendon sheath was easily identifiable. It was quite thickened and the actual tendon themselves were not able to be seen. The tenosynovium at this level was then incised and was at least a millimeter thick. It was removed from the entirety of both tendons. I then further inspected the wound and there was a band of tissue distally which appeared to be the very distal edge of the A1 deuce. It was released with scissors and there was noticeable opening of the flaps of the A1 deuce. I was able to remove the tendons from the hand and inspected for any other damage which they had none. I removed excess synovium from them and scar tissue as well. The tendons were then returned and the patient was asked to move the finger into deep flexion and back to extension. There was no recreation of the pre-operative symptoms. The hand was then once more inspected for any A0 deuce or area of possible constriction. I irrigated the wound and once again inspec dilip for any signs of abundant scar tissue or synovium or any areas of compression or constriction, which there were none. The wound was then irrigated and the skin was closed with a 4-0 Nylon. This was dressed with gauze and a Conform dressing. The patient tolerated the procedure well and was returned to the Same Day Surgery area in a stable condition suffering no known complication.
== END 2021-11-09 15:25 | disposition home or self-care (01) ==
LOC: SUR 13:20
PROVIDERS: PCP Nurse Practitioner Family; Visit Provider Student in an Organized Health Care Education/Training Program
PROC: 0LB70ZZ Excision of Right Hand Tendon, Open Approach (ICD-10-PCS; CPT 26055; principal; 2021-11-09 16:00)
DX: M65.841 Other synovitis and tenosynovitis, right hand (principal); M65.331 Trigger finger, right middle finger
CPT/HCPCS: 26145

== ENCOUNTER 2021-12-22 15:50 | Emergency (ER) | payer MEDICAID, SELFPAY ==
[2021-12-22 15:57] VITALS: BP 164/75; PULSE 69; RESP 18; TEMP 36.6; O2SAT 98
--- NOTE | 2021-12-22 16:00 | DI.US_ITS ---
Exam(s) US PELVIS TRANSVAGINAL EXAM: US PELVIS TRANSVAGINAL CLINICAL HISTORY: L sided abd pain, r/o ovarian cyst/torsion TECHNIQUE: Ultrasound performed using standard protocol. COMPARISON: No exams were available for comparison FINDINGS: Pelvic ultrasounds performed transabdominally and transvaginally. Uterus measures 7.7 x 3.8 x 6.4 cm . Myometrium is unremarkable. Endometrial stripe is about 4 millimeters in thickness and there is a small quantity of fluid in the endometrial cavity which is nonspecific. Please correlate with menst rual status. Right ovary is unremarkable in appearance measuring 37 x 14 x 21 millimeters with unremarkable arteri al and venous flow on Doppler evaluation. Left ovary measures 27 x 24 x 22 millimeters, left ovarian vascular flow not confirmed on Doppler deisi luation although this may be due to technical factors. No left ovarian enlargement seen to suggest o varian torsion but torsion is not excluded. No free fluid in the cul-de-sac. Limited scanning of the kidneys is unremarkable. IMPRESSION: Left ovarian vascular flow not identified on Doppler evaluation, this finding may be due to technical factors. No ovarian enlargement seen to suggest torsion but torsion is not excluded. Please correl ate clinically. DATA REPOSITORY:
[2021-12-22 16:25] LABS: Abs Immature Grans 0.04 10^3/uL (0.0-0.06); Absolute Basophil Count 0.07 10^3/uL (0.0-0.2); Absolute Eosinophil Count 0.12 10^3/uL (0.0-0.7); Absolute Lymphocyte Count 2.85 10^3/uL (1.2-3.4); Absolute Monocyte Count 0.71 10^3/uL (0.1-0.8); Absolute Neutrophil Count 8.27 10^3/uL (1.2-6.7); Basophils % 0.6; HCT 39.2 % (36.0-46.0); HGB 13.4 g/dL (11.2-15.7); Immature Grans % 0.3; Lymphocytes % 23.6; MCH 28.9 pg (27.0-33.0); MCHC 34.2 % (32.0-36.0); MCV 85 fL (80-95); MPV 10.7 fL (8.0-11.0); Monocytes % 5.9; Neutrophils % 68.6; Platelet Count 363 10^3/uL (130-400); RBC 4.63 10^6/uL (3.93-5.22); RDW 13.1 % (11.7-14.6); RDW-SD 40.5 fL; WBC 12.06 10^3/uL (4.4-10.8)
[2021-12-22] MEDS: Normal Saline 1,000 ML 1000 ML IV (16:25)
[2021-12-22 16:28] LABS: Bilirubin Negative (Negative); Blood Negative (Negative); Clarity Clear (Clear); Glucose Negative (Negative); Ketones Negative (Negative); Leukocyte Esterase Negative (Negative); Nitrite Negative (Negative); Urobilinogen 0.2 EU/dL (Up TO 0.2)
[2021-12-22 16:45] LABS: ALT 55 U/L (14-59); AST 25 U/L (15-37); Alkaline Phosphatase 77 U/L (46-116); Anion Gap 11.3 mmol/L (3-11); BUN 20 mg/dL (7-18); Bilirubin, Total 0.3 mg/dL (0.2-1.0); CO2 22.7 mmol/L (21.0-32.0); Calcium 9.3 mg/dL (8.5-10.1); Chloride 106 mmol/L (98-107); Estimated GFR 70.36 (mL/min/1.73m2); Glucose 96 mg/dL (74-106); Lipase 86 U/L (73-393); Potassium 3.6 mmol/L (3.5-5.1); Sodium 140 mmol/L (136-145); Total Protein 8.3 g/dL (6.4-8.2)
--- NOTE | 2021-12-22 16:46 | ED.GENADUL_ITS ---
Discharge Plan Disposition Patient Disposition: HOME Condition: Improving Discharge Details Clinical Impression: Acute diverticulitis Primary Care Provider: Subha Parker ED Provider: Bethanie Raya Home Meds and New Rx's Prescriptions: New metronidazole 500 mg tablet 500 mg PO TID 10 Days Qty: 30 0RF ciprofloxacin HCl 500 mg tablet 500 mg PO BID 10 Days Qty: 20 0RF Continued medroxyprogesterone [Depo-Provera] 150 mg/mL syringe 150 mg IM .Q13W Qty: 1 4RF Rx Instructions: Bring to appt cholecalciferol (vitamin D3) [Vitamin D3] 25 mcg (1,000 unit) Capsule 25 mcg PO DAILY Probiotic 10 billion cell Capsule 10,000 mmu cells PO DAILY ibuprofen 600 mg tablet 600 mg PO TID PRN (Reason: pain) Qty: 30 3RF acetaminophen 500 mg tablet 1,000 mg PO Q8H PRN (Reason: pain) Qty: 60 3RF Discharge Instructions Instructions: Diverticulitis (ED), Diverticulitis Diet (ED) Additional Instructions: Your CT scan today revealed that you have acute diverticulitis which is an infection in your colon. Drink plenty of fluids and get plenty of rest. Prescriptions for 2 antibiotics have been sent electronically to your pharmacy to take as directed until finished. Alternate tylenol and motrin as needed and directed for pain. Take the oxycodone for pain not relieved with Tylenol or Motrin. You have been placed on general surgery follow-up list for reevaluation in the next 2 weeks. Follow-up with your scheduled appointment with women's wellness later this month. Return immediately to the emergency department if you develop any worsening or new concerning symptoms. Discharge Data Discharge Physician: Bethanie Raya Medical Decision Making 1600 -- 46-year-old female with a history of GERD, diverticulitis, ovarian cyst, anxiety and depression who presents for left-sided abdominal pain for the past week with a large amount of watery brown diarrhea today. Her blood pressure is hypertensive but remainder of vitals within normal limits. She appears uncomfortable but nontoxic. Her abdomen is soft and obese and tender in the left lower quadrant. There is no rigidity or guarding. Differential diagnosis includes ovarian cyst, UTI, torsion, diverticulitis, appendicitis, colitis, gastroenteritis. We will place an IV, bolus IV fluids, screening labs, urinalysis, pelvic ultrasound and give a dose of IV Tylenol, IV Zofran and reassess. 1819 --labs and imaging reviewed. White blood cell count 12. Urine test negative. Urinalysis negative. Ultrasound revealed no flow in the left ovary which could be technical in nature but cannot rule out left ovarian tors ion. Right ovary demonstrated flow. No free fluid. Case discussed with Dr. Chance who recommended confirming patient no longer has desire for childbearing. Also of the size of the ovary at 2.7 x 2.4 x 2.2 would be unlikely to cause a torsion. If patient has no peritoneal signs and pain controlled, can be discharged home with follow-up with women's wellness. Patient reassessed and her pain is still present mostly with movement. Reassessment of abdomen is still significantly tender in the left lower quadrant. No rigidity or guarding or peritoneal signs. Will obtain a CT abdomen and pelvis with IV contrast to rule out diverticulitis or colitis and give a dose of IV Dilaudid and reassess. 1899 --Dr. Chance came to evaluate patient at bedside and does not suspect torsion on exam and based on small size of ovary on ultrasound and patient can follow-up with her scheduled appointment with women's wellness on December 30. 1944 --CT notes acute diverticulitis but no evidence of perforation or abscess. Patient reassessed and she feels much better and would like to go home. Discussed with patient that considering her mildly elevated white blood cell count, we could consider admission however would there are no beds available here so this will require transfer to another facility. Patient states she did not want to be admitted and would rather go home with oral antibiotics. Disposition decision made weighing the risks and benefits of hospitalization versus outpatient treatment, the risk for further decompensation, and the patient's wishes. She was given a dose of Flagyl and Cipro p.o. here, bottles of these antibiotics to go and prescription sent electronically to her pharmacy. She was given oxycodone to go for breakthrough pain. She was placed on general surgery follow-up list. Advised to follow-up with women's wellness later this month. Usual and customary return precautions given prior to discharge. Medical Records Medical records reviewed: Yes I reviewed the patient's medical records. HPI General Mode of arrival: ambulatory . Date/Time Provider Initiated Documentation: 12/22/21 15:52 . Limitations to Documentation: no limitations . Information obtained by: patient . HPI Narrative: Patient is a 46-year-old female with a history of ovarian cyst, GERD, diverticulitis, anxiety, depression who presents with left-sided lower abdominal pain for the past week, worse today. She states the pain has been constant squeezing and intermittent sharp which is worse with movement. She states the pain is 8/10 at its worst and 4/10 at its best. She states she took 800 mg of ibuprofen 3 hours ago with some improvement. She also states she had a large amount of watery brown diarrhea earlier today but had a formed bowel movement after this. She states she had an increase in formed bowel movements yesterday. She admits to nausea but denies any fever, vomiting, urinary symptoms or rectal bleeding. She states she is on the Depo-Provera shot and did notice some bright red and brown vaginal spotting which is not unusual for her. She states she was seen here recently for similar type pain and diagnosed with an ovarian cyst. She states she had an appointment with women's wellness for this current episode of pain for the past week but states the pain became too severe today and was told to come to the emergency department if her pain worsened. Related Data Home Medications Medication Instructions Recorded Confirmed cholecalciferol (vitamin D3) 25 25 mcg PO DAILY 05/11/21 12/22/21 mcg (1,000 unit) capsule (Vitamin D3) medroxyprogesterone 150 mg/mL 150 mg IM .Q13W #1 mL 05/14/21 12/22/21 intramuscular syringe (Depo-Provera) Lactobacillus acidophilus 10 10,000 mmu cells PO DAILY 09/22/21 12/22/21 billion cell capsule (Probiotic) acetaminophen 500 mg tablet 1,000 mg PO Q8H PRN pain #60 tabs 09/22/21 12/22/21 ibuprofen 600 mg tablet 600 mg PO TID PRN pain #30 tabs 09/22/21 12/22/21 ciprofloxacin HCl 500 mg tablet 500 mg PO BID 10 days #20 tabs 12/22/21 metronidazole 500 mg tablet 500 mg PO TID 10 days #30 tabs 12/22/21 Previous Rx's Medication Instructions Recorded medroxyprogesterone 150 mg/mL 150 mg IM .Q13W #1 mL 05/14/21 intramuscular syringe (Depo-Provera) acetaminophen 500 mg tablet 1,000 mg PO Q8H PRN pain #60 tabs 09/22/21 ibuprofen 600 mg tablet 600 mg PO TID PRN pain #30 tabs 09/22/21 ciprofloxacin HCl 500 mg tablet 500 mg PO BID 10 days #20 tabs 12/22/21 metronidazole 500 mg tablet 500 mg PO TID 10 days #30 tabs 12/22/21 Allergies Allergy/AdvReac Type Severity Reaction Status Date / Time doxycycline Allergy Intermediate shakes/hive Verified 12/22/21 16:00 s General Stated Complaint: Abd Prob HARVEY: 3 Review of Systems All systems reviewed & are unremarkable except as noted in HPI and below Constitutional Constitutional: Reports as per HPI, Denies chills and Denies fever(s) Eyes Eyes: Denies blurry vision ENT Ears, Nose, Mouth, and Throat: Denies dizziness, Denies sore throat and Denies throat swelling Cardiovascular Cardiovascular: Denies chest pain and Denies dyspnea Respiratory Respiratory: Denies cough and Denies dyspnea Gastrointestinal Gastrointestinal: Reports abdominal pain, Reports diarrhea and Denies vomiting Genitourinary Genitourinary: Denies hematuria and Denies dysuria Musculoskeletal Musculoskeletal: Denies back pain and Denies numbness Integumentary/Breasts Skin/Breast: Denies lesions and Denies rash Neurologic Neurologic: Denies dizziness, Denies localized weakness and Denies numbness Allergic/Immunologic Allergic/Immunologic: Denies throat swelling PFSH All Active Problems (Updated 12/22/21 @ 19:56 by Bethanie Raya DO) Acute diverticulitis (Acute) Flexor tenosynovitis of finger (Acute) Fatigue (Acute) Medical History (Updated 12/22/21 @ 19:56 by Bethanie Raya DO) Anxiety with depression Clostridioides difficile infection Contraceptive surveillance Diverticulitis Dupuytren's disease GERD (gastroesophageal reflux disease) History of HPV infection Hx gestational diabetes Hx of carpal tunnel syndrome Infectious disease exposure Insomnia Reflux esophagitis Surgical History (Updated 11/18/21 @ 09:02 by EMELI Alfaro) History of carpal tunnel release History of colonoscopy History of esophagogastroduodenoscopy (EGD) History of surgery right foot History of tubal ligation Trigger middle finger of right hand Depo-Medrol injection: 05/03/2021 S/P Release: 09/30/2021 S/P Revision Release: 11/09/2021 Social History Smoking/Tobacco Use Status: Former Tobacco Use Quit Date: 10/04/20 Smoking risk assessment performed?: Yes Alcohol Intake: current Alcohol Intake frequency: holidays/special occasions only Drug use: Daily Substance use type: marijuana Details: uses to sleep, not last night used CBD gummies Do you feel safe at home: Yes Do you feel safe in your relationship?: Yes Exam Const General: cooperative and no acute distress Orientation: alert, awake and oriented x3 HENMT Head: normal to inspection Face and sinus: normal facial exam Eyes General: appearance normal, both eyes and all related structures Pupils: PERRL EOM: EOM intact bilaterally Neck Neck: normal visual inspection and No submandibular swelling Lymphatic: no lymphadenopathy noted Chest Chest: normal inspection of the chest and no tenderness Resp Effort & Inspection: normal respiratory effort and able to speak in complete sentences Auscultation: clear to auscultation bilaterally Cardio Rate: regular rate Rhythm: regular rhythm GI Inspection: normal to inspection Palpation: soft, not firm, not rigid and tender in the LLQ Auscultation: hypoactive bowel sounds Back/Spine/Pelvis Thoracic/Lumbar Spine: thoracic and lumbar spine normal to inspection Pelvis: no pain with anterior-posterior compression Skin General skin exam: no rashes or lesions noted Neuro General: patient alert, patient awake and patient oriented x3 Cognition: normal cognition Speech: speech normal Motor: muscle tone normal throughout Sensory Exam: no sensory deficits noted Extrem General: normal to inspection, full ROM, capillary refill normal, no calf tenderness bilaterally and no edema Psych Appearance: grossly normal Mental Status: mental status grossly normal Speech and Movement: speech and movement normal Affect: normal affect Course Vital Signs Vital signs: Vital Signs Temperature 97.9 F 12/22/21 15:57 Pulse 69 12/22/21 15:57 Respiratory Rate 18 12/22/21 15:57 Blood Pressure 164/75 H 12/22/21 15:57 Pulse Oximetry 98 12/22/21 15:57 Temperature 97.9 F 12/22/21 15:57 Temperature Source Oral 12/22/21 15:57 Pulse 69 12/22/21 15:57 Respiratory Rate 18 12/22/21 15:57 Respiratory Effort Non-Labored 12/22/21 16:01 Blood Pressure 164/75 H 12/22/21 15:57 Blood Pressure Position Sitting 12/22/21 15:57 Pulse Oximetry 98 12/22/21 15:57 Oxygen Delivery Method Room Air 12/22/21 15:57 Oxygen Flow Rate 0 12/22/21 15:57 Pain Level 9 12/22/21 15:57 Lab/Test Results Lab/Test Results: Laboratory Tests Range/Units 12/22/21 12/22/21 16:15 16:15 WBC (4.4-10.8) 10^3/uL 12.06 H RBC (3.93-5.22) 10^6/uL 4.63 Hgb (11.2-15.7) g/dL 13.4 Hct (36.0-46.0) % 39.2 MCV (80-95) fL 85 MCH (27.0-33.0) pg 28.9 MCHC (32.0-36.0) % 34.2 RDW (11.7-14.6) % 13.1 Plt Count (130-400) 10^3/uL 363 MPV (8.0-11.0) fL 10.7 Immature Gran % 0.3 Neutrophils % 68.6 Lymphocytes % 23.6 Monocytes % 5.9 Eosinophils % 1.0 Basophils % 0.6 Nucleated RBC % (0.0-0.3) % 0.0 Absolute Neutrophils (1.2-6.7) 10^3/uL 8.27 H Absolute Lymphocytes (1.2-3.4) 10^3/uL 2.85 Absolute Monocytes (0.1-0.8) 10^3/uL 0.71 Absolute Eosinophils (0.0-0.7) 10^3/uL 0.12 Absolute Basophils (0.0-0.2) 10^3/uL 0.07 Urine Color (Yellow) Yellow Urine Clarity (Clear) Clear Urine pH (5-8) 7.0 Ur Specific [place] (1.005-1.025) 1.020 Urine Protein (Negative) mg/dL Negative Urine Ketones (Negative) mg/dL Negative Urine Blood (Negative) Negative Urine Nitrite (Negative) Negative Urine Bilirubin (Negative) Negative Urine Urobilinogen (Up TO 0.2) EU/dL 0.2 Ur Leukocyte Esterase (Negative) Negative Urine Glucose (Negative) mg/dL Negative POC- Test(urine) Negative
[2021-12-22] MEDS: Ondansetron 4 MG/2 ML VIAL IVP (17:20)
[2021-12-22] MEDS: ACETAMINOPHEN 1,000 MG/100 ML BTL 400 MG IVPB (17:30)
[2021-12-22 18:02] VITALS: BP 132/74; PULSE 68; RESP 12; O2SAT 99
--- NOTE | 2021-12-22 18:08 | DI.VRAD_ITS ---
PROCEDURE INFORMATION: Exam: US Duplex Artery or Vein of the Abdominal and/or Reproductive Organs, Limited Ovaries Exam date and time: 12/22/2021 4:42 PM Age: 46 years old Clinical indication: Pelvic pain; Prior surgery; Surgery type: C section 16 years ago, tubal ligation and then reversal TECHNIQUE: Imaging protocol: Real-time duplex ultrasound scan of the arterial or venous flow with knox scale, color Doppler flow and spectral waveform analysis with image documentation. Limited duplex exam focused on the ovaries. Duplex exam was performed to evaluate for torsion and other vascular conditions. COMPARISON: US PELVIS TRANSVAGINAL 05/11/2021 12:43 PM FINDINGS: Right ovary/adnexa: The right ovary demonstrates internal color flow signal on color Doppler assessment. Low resistance spectral Doppler arterial waveforms demonstrated with continuous diastolic flow. Venous waveforms were not documented. Left ovary/adnexa: The left ovary demonstrates no definite color flow. Power Doppler imaging was not provided. Spectral imaging was performed, with no arterial or venous waveforms documented. IMPRESSION: 1. No flow could be confirmed in the left ovary with color Doppler or spectral Doppler imaging. This might be technical in nature, and the technologist questioned whether this may be due to body habitus or bowel motion. Although there are no gross grayscale morphologic changes of torsion, the possibility of left ovarian torsion is not excluded. 2. The right ovary demonstrates color flow and low resistance arterial waveforms with no evidence of torsion. PROCEDURE INFORMATION: Exam: US Pelvis Complete, Transabdominal and US Pelvis, Transvaginal Exam date and time: 12/22/2021 4:42 PM Age: 46 years old Clinical indication: Pelvic pain; Prior surgery; Surgery type: C section 16 years ago, tubal ligation and then reversal TECHNIQUE: Imaging protocol: Real-time complete transabdominal and transvaginal pelvic ultrasound with image documentation. Transvaginal imaging was used for better evaluation of the endometrium, adnexa, and/or cervix. COMPARISON: US PELVIS TRANSVAGINAL 05/11/2021 12:43 PM FINDINGS: TRANSABDOMINAL ULTRASOUND: The uterus was not well demonstrated transabdominally. The right kidney was imaged and measures 12.9 cm in length with no gross sonographic abnormality. Left kidney was imaged and measures 11.8 cm in length no gross sonographic abnormality. The right ovary was not visualized transabdominally The right adnexa demonstrates no gross abnormalities. The left ovary was not visualized transabdominally The left adnexa demonstrates no gross abnormalities. No free fluid. The urinary bladder is largely contracted without gross abnormality. TRANSVAGINAL ULTRASOUND: The uterus measures 7.7 x 3.8 x 6.4 cm. Normal configuration and echotexture. No mass lesions. Endometrial stripe thickness is 4 mm. Trace endometrial fluid. 4 mm rounded echogenic focus in the leftward fundal endometrial cavity on the transverse images could represent a small endometrial polyp. No junctional zone penetration. The right ovary measures 3.7 x 1.4 x 2.1 cm, volume 5.7 mL. Normal grayscale appearance with a few small follicles. Internal color flow is documented without evidence of torsion. The left ovary measures 2.7 x 2.4 x 2.2 cm, volume 7.6 mL. Normal grayscale appearance with a few small physiologic follicles. Internal color flow was not documented. Power Doppler imaging was not provided. No free fluid. IMPRESSION: 1. No flow could be confirmed in the left ovary with color Doppler or spectral Doppler imaging. This might be technical in nature, and the technologist questioned whether this may be due to body habitus or bowel motion. Although there are no gross grayscale morphologic changes of torsion, the possibility of left ovarian torsion is not excluded. 2. The right ovary demonstrated flow, with no evidence of torsion. 3. No free fluid. 4. Trace endometrial fluid, with a 4 mm rounded echogenic focus in the leftward fundal endometrial cavity which could represent a small endometrial polyp but is nonspecific. Recommend gynecologic referral. 5. These findings initiated a critical results reporting process. An addendum will be issued at the time of clinician notification. Dictated and Authenticated by: Tony Dawn MD. Ordering:JESSE Kovacs MD
--- NOTE | 2021-12-22 18:14 | DI.VRAD_ITS ---
Addendum created by Tony Dawn MD on 12/22/2021 6:13:57 PM EDT: Addendum: THIS REPORT CONTAINS FINDINGS THAT MAY BE CRITICAL TO PATIENT CARE. The findings were verbally communicated via telephone conference with JUSTIN BOLAND at 6:13 PM EDT on 12/22/2021. The findings were acknowledged and understood. Initial report created on 12/22/2021 6:07:53 PM EDT: PROCEDURE INFORMATION: Exam: US Duplex Artery or Vein of the Abdominal and/or Reproductive Organs, Limited Ovaries Exam date and time: 12/22/2021 4:42 PM Age: 46 years old Clinical indication: Pelvic pain; Prior surgery; Surgery type: C section 16 years ago, tubal ligation and then reversal TECHNIQUE: Imaging protocol: Real-time duplex ultrasound scan of the arterial or venous flow with knox scale, color Doppler flow and spectral waveform analysis with image documentation. Limited duplex exam focused on the ovaries. Duplex exam was performed to evaluate for torsion and other vascular conditions. COMPARISON: US PELVIS TRANSVAGINAL 05/11/2021 12:43 PM FINDINGS: Right ovary/adnexa: The right ovary demonstrates internal color flow signal on color Doppler assessment. Low resistance spectral Doppler arterial waveforms demonstrated with continuous diastolic flow. Venous waveforms were not documented. Left ovary/adnexa: The left ovary demonstrates no definite color flow. Power Doppler imaging was not provided. Spectral imaging was performed, with no arterial or venous waveforms documented. IMPRESSION: 1. No flow could be confirmed in the left ovary with color Doppler or spectral Doppler imaging. This might be technical in nature, and the technologist questioned whether this may be due to body habitus or bowel motion. Although there are no gross grayscale morphologic changes of torsion, the possibility of left ovarian torsion is not excluded. 2. The right ovary demonstrates color flow and low resistance arterial waveforms with no evidence of torsion. PROCEDURE INFORMATION: Exam: US Pelvis Complete, Transabdominal and US Pelvis, Transvaginal Exam date and time: 12/22/2021 4:42 PM Age: 46 years old Clinical indication: Pelvic pain; Prior surgery; Surgery type: C section 16 years ago, tubal ligation and then reversal TECHNIQUE: Imaging protocol: Real-time complete transabdominal and transvaginal pelvic ultrasound with image documentation. Transvaginal imaging was used for better evaluation of the endometrium, adnexa, and/or cervix. COMPARISON: US PELVIS TRANSVAGINAL 05/11/2021 12:43 PM FINDINGS: TRANSABDOMINAL ULTRASOUND: The uterus was not well demonstrated transabdominally. The right kidney was imaged and measures 12.9 cm in length with no gross sonographic abnormality. Left kidney was imaged and measures 11.8 cm in length no gross sonographic abnormality. The right ovary was not visualized transabdominally The right adnexa demonstrates no gross abnormalities. The left ovary was not visualized transabdominally The left adnexa demonstrates no gross abnormalities. No free fluid. The urinary bladder is largely contracted without gross abnormality. TRANSVAGINAL ULTRASOUND: The uterus measures 7.7 x 3.8 x 6.4 cm. Normal configuration and echotexture. No mass lesions. Endometrial stripe thickness is 4 mm. Trace endometrial fluid. 4 mm rounded echogenic focus in the leftward fundal endometrial cavity on the transverse images could represent a small endometrial polyp. No junctional zone penetration. The right ovary measures 3.7 x 1.4 x 2.1 cm, volume 5.7 mL. Normal grayscale appearance with a few small follicles. Internal color flow is documented without evidence of torsion. The left ovary measures 2.7 x 2.4 x 2.2 cm, volume 7.6 mL. Normal grayscale appearance with a few small physiologic follicles. Internal color flow was not documented. Power Doppler imaging was not provided. No free fluid. IMPRESSION: 1. No flow could be confirmed in the left ovary with color Doppler or spectral Doppler imaging. This might be technical in nature, and the technologist questioned whether this may be due to body habitus or bowel motion. Although there are no gross grayscale morphologic changes of torsion, the possibility of left ovarian torsion is not excluded. 2. The right ovary demonstrated flow, with no evidence of torsion. 3. No free fluid. 4. Trace endometrial fluid, with a 4 mm rounded echogenic focus in the leftward fundal endometrial cavity which could represent a small endometrial polyp but is nonspecific. Recommend gynecologic referral. 5. These findings initiated a critical results reporting process. An addendum will be issued at the time of clinician notification. Dictated and Authenticated by: Tony Dawn MD. Ordering:JESSE Kovacs MD
--- NOTE | 2021-12-22 18:15 | DI.CT_ITS ---
Exam(s) CT ABDOMEN PELVIS W EXAM: CT ABDOMEN PELVIS W INDICATION: LLQ abd pain, r/o diverticulitis, colitis. COMPARISON: CT ABD PELVIS WITH CONTRAST from 06/23/2017 TECHNIQUE: FINDINGS: CT examination of the abdomen and pelvis was performed with intravenous infusion of 100 cc of Omnipaq ue 350. Images obtained through the lung bases are unremarkable except for a stable 4 millimeter in diameter left lower lobe noncalcified pulmonary nodule. The liver is unremarkable in appearance. Gallbladder and bile ducts are CT normal. Pancreas appears normal. Spleen is unremarkable in appearance. Adrenals appear normal. The kidneys are unremarkable with no evidence of hydronephrosis, nephrolithiasis, or renal mass.. Ur inary bladder unremarkable as visualized but nearly empty. Abdominal aorta is of normal diameter and no major vascular abnormality is seen. No abdominal wall hernia. No abdominal or pelvic adenopathy. [employer] structures appear intact. Appendix is normal. There is wall thickening and localized Dee colonic fat edema of the proximal si gmoid colon consistent with acute diverticulitis. No evidence of obstruction. No evidence of perfor ation or abscess formation.. IMPRESSION: The appearance is consistent with acute uncomplicated diverticulitis of the proximal sigmoid colon as described above.. RADIATION DOSE DELIVERED: 1,228.6mGy.cm Total DLP 1,228.6mGy.cm Total DLP !Error CTDIvol RADIATION OPTIMIZATION: All CT scans at this facility use at least one of these dose optimization te chniques: automated exposure control; mA and/or kV adjustment per patient size (includes targeted exa ms where dose is matched to clinical indication); or iterative reconstruction.
[2021-12-22] MEDS: HYDROmorphone 2 MG/ML SYR 0.5 MG IVP (18:36)
[2021-12-22] MEDS: Omnipaque 350 MG/ML 100 ML BTL IJ (19:05)
[2021-12-22 19:19] VITALS: BP 143/88; PULSE 55; RESP 18; TEMP 36.7; O2SAT 100
--- NOTE | 2021-12-22 19:31 | DI.VRAD_ITS ---
PROCEDURE INFORMATION: Exam: CT Abdomen And Pelvis With Contrast Exam date and time: 12/22/2021 7:01 PM Age: 46 years old Clinical indication: Other: Llq pain R/O diverticulitis, colitis TECHNIQUE: Imaging protocol: Computed tomography of the abdomen and pelvis with contrast. Contrast material: 350; Contrast volume: 100 ml; Contrast route: INTRAVENOUS (IV); COMPARISON: CT ABD PELVIS WITH CONTRAST 06/23/2017 12:20 PM FINDINGS: Lungs: 4 mm noncalcified pulmonary nodule in the lateral left lower lobe on series 6, image 46 is unchanged from 06/23/2017 and does not require further assessment. Heart: Heart size normal. Mediastinal space: The visualized distal esophagus is largely contracted without gross abnormality. Liver: Normal contour. No mass lesions. No intrahepatic biliary ductal dilatation. Gallbladder and bile ducts: Normal. No calcified stones. No ductal dilation. Pancreas: Normal. No inflammatory changes or ductal dilation. Spleen: Normal. No splenomegaly. Adrenal glands: Normal. No adrenal mass. Kidneys and ureters: No acute abnormalities. No hydronephrosis or hydroureter. No urinary tract stones are identified. Stomach and bowel: The stomach is unremarkable. The small bowel is nondilated with no gross abnormality. Mild-moderate distal colonic diverticulosis. Inflamed diverticulum and adjacent wall thickening involving the proximal sigmoid colon consistent with acute diverticulitis. No evidence of perforation or abscess development. Appendix: The appendix is normal in caliber and demonstrates no evidence of appendicitis. Intraperitoneal space: No free fluid or air. Vasculature: Mild atherosclerotic aortoiliac calcification without aneurysm. Lymph nodes: No adenopathy. Urinary bladder: The urinary bladder is partially contracted without gross abnormality. 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 2.3 cm left ovarian follicle within physiologic range. Bones/joints: No acute osseous abnormalities. Moderate disc degenerative changes L5-S1. Moderate canal stenosis L3-L4, L4-L5, and L5-S1. Mild canal stenosis L2-L3. Soft tissues: Very small fatty umbilical hernia . No evidence of associated bowel herniation or strangulation. IMPRESSION: 1. There is evidence of acute diverticulitis in the proximal sigmoid colon. No perforation or abscess. 2. Mild-moderate distal colonic diverticulosis. 3. There are chronic changes of remote prior right ovarian vein thrombosis, unchanged from 2018. 4. Additional nonemergent findings detailed above. Dictated and Authenticated by: Tony Dawn MD. Ordering:JESSE Kovacs MD
[2021-12-22] MEDS: Ciprofloxacin 500 MG TAB PO (20:11)
[2021-12-22] MEDS: oxyCODONE 5 MG TAB PO (20:11)
[2021-12-22] MEDS: metroNIDAZOLE 500 MG TAB PO (20:11)
[2021-12-22] MEDS: metroNIDAZOLE 500 MG TAB, 3 TABS/BTL PO (20:20)
[2021-12-22 20:24] VITALS: BP 134/78; PULSE 53; RESP 15; TEMP 36.6; O2SAT 98
== END 2021-12-22 20:26 | disposition home or self-care (01) ==
PROVIDERS: Emergency Provider Physician Assistant; PCP Nurse Practitioner Family
DX: K57.92 Diverticulitis of intestine, part unspecified, without perforation or abscess without bleeding (principal); D72.829 Elevated white blood cell count, unspecified; Z87.891 Personal history of nicotine dependence
CPT/HCPCS: 36415; 80053; 81025; 83690; 96361; 96374; 96375; 99285; 74177; 76830; 76856; 81003; 85025; 99284; J0131; J1170; J2405; J3490

== ENCOUNTER 2021-12-26 13:10 | Emergency (ER) | payer MEDICAID, SELFPAY ==
[2021-12-26 13:18] VITALS: BP 113/61; PULSE 57; RESP 16; TEMP 36.8; O2SAT 96
--- NOTE | 2021-12-26 13:35 | ED.GENADUL_ITS ---
Discharge Plan Disposition Patient Disposition: HOME Condition: Improving Discharge Details Clinical Impression: Acute diverticulitis Primary Care Provider: Subha Parker ED Provider: Shahid Olvera Home Meds and New Rx's Prescriptions: New oxycodone [Roxicodone] 5 mg tablet 5 mg PO BID PRN (Reason: pain) Qty: 5 0RF Continued medroxyprogesterone [Depo-Provera] 150 mg/mL syringe 150 mg IM .Q13W Qty: 1 4RF Rx Instructions: Bring to appt cholecalciferol (vitamin D3) [Vitamin D3] 25 mcg (1,000 unit) Capsule 25 mcg PO DAILY Probiotic 10 billion cell Capsule 10,000 mmu cells PO DAILY ibuprofen 600 mg tablet 600 mg PO TID PRN (Reason: pain) Qty: 30 3RF acetaminophen 500 mg tablet 1,000 mg PO Q8H PRN (Reason: pain) Qty: 60 3RF metronidazole 500 mg tablet 500 mg PO TID 10 Days Qty: 30 0RF ciprofloxacin HCl 500 mg tablet 500 mg PO BID 10 Days Qty: 20 0RF Medical Decision Making This is a 46-year-old female presents emerged from complaining of ongoing left lower quadrant abdominal pain. She was seen December 22 and diagnosed with acute descending diverticulitis. She was placed on Cipro and Flagyl with a probiotic and oxycodone as needed at home. She has had ongoing left lower quadrant abdominal pain, malaise and some anorexia. She has been able to tolerate broth and crackers. She notes urge to defecate and loose stool without blood. She arrives ER afebrile with blood pressure noted at 113/61. Her exam does reveal left lower quadrant bowel tenderness. Diagnosis includes ongoing diverticulitis with inflammatory process, dehydration, electrolyte abnormalities. Patient does not appear septic. Patient improved with fluids and analgesics. Her white blood cell count trended down from 12-8 and remainder of her laboratories were reassuring. I discussed with her that her response to medications is reassuring. We discussed deferring repeat imaging today to avoid radiation. She will return if she goes a fever, recurrent pain, or any other acute concerns. I will offer her small number of oxycodone for home. She is stable and appropriate for discharge at this time. Lab Data Lab results reviewed: Yes I reviewed the patient's lab results. Labs: Laboratory Results - last 24 hr 12/26/21 12/26/21 12/26/21 13:42 13:42 14:20 WBC 8.46 RBC 4.51 Hgb 13.1 Hct 38.0 MCV 84 MCH 29.0 MCHC 34.5 RDW 13.4 Plt Count 372 MPV 11.0 Immature Gran % 0.4 Neutrophils % 60.1 Lymphocytes % 28.7 Monocytes % 8.5 Eosinophils % 1.5 Basophils % 0.8 Nucleated RBC % 0.0 Absolute Neutrophils 5.08 Absolute Lymphocytes 2.43 Absolute Monocytes 0.72 Absolute Eosinophils 0.13 Absolute Basophils 0.07 Sodium Cancelled 140 Potassium Cancelled 3.6 Chloride Cancelled 107 Carbon Dioxide Cancelled 23.4 Anion Gap Cancelled 9.6 BUN Cancelled 14 Creatinine Cancelled 0.9 Est GFR (CKD-EPI 2020) Cancelled 79.85 Glucose Cancelled 114 H Calcium Cancelled 9.2 Magnesium Cancelled 2.0 Total Bilirubin Cancelled 0.2 AST Cancelled 29 ALT Cancelled 63 H Alkaline Phosphatase Cancelled 67 Total Protein Cancelled 7.2 Albumin Cancelled 3.5 HPI General Mode of arrival: ambulatory . Date/Time Provider Initiated Documentation: 12/26/21 13:23 . Limitations to Documentation: no limitations . Information obtained by: patient . History of Present Illness 46 year old F presents to the emergency department with the chief complaint of Ongoing left lower quadrant abdominal pain, described as moderate and similar to prior episodes, Quality is described as dull and constant, and is localized to the abdomen and left. Patient reports no radiation. Patient started experiencing this day(s) and it has been intermittent. Rest improves symptom(s), Eating worsens symptoms and Movement worsens symptoms . Patient notes loss of appetite and malaise; denies fever/chills. Patient did receive the following treatments prior to arrival, none Related Data Home Medications Medication Instructions Recorded Confirmed cholecalciferol (vitamin D3) 25 25 mcg PO DAILY 05/11/21 12/26/21 mcg (1,000 unit) capsule (Vitamin D3) medroxyprogesterone 150 mg/mL 150 mg IM .Q13W #1 mL 05/14/21 12/26/21 intramuscular syringe (Depo-Provera) Lactobacillus acidophilus 10 10,000 mmu cells PO DAILY 09/22/21 12/26/21 billion cell capsule (Probiotic) acetaminophen 500 mg tablet 1,000 mg PO Q8H PRN pain #60 tabs 09/22/21 12/26/21 ibuprofen 600 mg tablet 600 mg PO TID PRN pain #30 tabs 09/22/21 12/26/21 ciprofloxacin HCl 500 mg tablet 500 mg PO BID 10 days #20 tabs 12/22/21 12/26/21 metronidazole 500 mg tablet 500 mg PO TID 10 days #30 tabs 12/22/21 12/26/21 oxycodone 5 mg tablet (Roxicodone) 5 mg PO BID PRN pain #5 tabs 12/26/21 Previous Rx's Medication Instructions Recorded medroxyprogesterone 150 mg/mL 150 mg IM .Q13W #1 mL 05/14/21 intramuscular syringe (Depo-Provera) acetaminophen 500 mg tablet 1,000 mg PO Q8H PRN pain #60 tabs 09/22/21 ibuprofen 600 mg tablet 600 mg PO TID PRN pain #30 tabs 09/22/21 ciprofloxacin HCl 500 mg tablet 500 mg PO BID 10 days #20 tabs 12/22/21 metronidazole 500 mg tablet 500 mg PO TID 10 days #30 tabs 12/22/21 oxycodone 5 mg tablet (Roxicodone) 5 mg PO BID PRN pain #5 tabs 12/26/21 Allergies Allergy/AdvReac Type Severity Reaction Status Date / Time doxycycline Allergy Intermediate shakes/hive Verified 12/26/21 13:25 s General Stated Complaint: Abd Prob HARVEY: 3 Review of Systems Narrative: Malaise, weakness, nausea without emesis. Watery stool. Urge to defecate 8 systems were reviewed and otherwise negative. PFSH All Active Problems (Updated 12/26/21 @ 15:58 by Shahid Olvera MD) Acute diverticulitis (Acute) Flexor tenosynovitis of finger (Acute) Fatigue (Acute) Medical History Anxiety with depression Clostridioides difficile infection Contraceptive surveillance Diverticulitis Dupuytren's disease GERD (gastroesophageal reflux disease) History of HPV infection Hx gestational diabetes Hx of carpal tunnel syndrome Infectious disease exposure Insomnia Reflux esophagitis Surgical History History of carpal tunnel release History of colonoscopy History of esophagogastroduodenoscopy (EGD) History of surgery right foot History of tubal ligation Trigger middle finger of right hand Depo-Medrol injection: 05/03/2021 S/P Release: 09/30/2021 S/P Revision Release: 11/09/2021 Social History Smoking/Tobacco Use Status: Former Tobacco Use Quit Date: 10/04/20 Smoking risk assessment performed?: Yes Alcohol Intake: current Alcohol Intake frequency: holidays/special occasions only Drug use: Daily Substance use type: marijuana Details: uses to sleep, not last night used CBD gummies Do you feel safe at home: Yes Do you feel safe in your relationship?: Yes Exam Narrative Exam Narrative: GEN: awake, alert, oriented 3. Pleasant, well groomed, interactive. HEAD: Normocephalic, atraumatic ENT: Mucous membranes moist, oropharynx unremarkable, External ear exam unremarkable EYES: PERRL, EOMI NECK: Full ROM, no ARMANDO, no menigismus CHEST/RESP: Nontender, clear to auscultation bilateral, no wheeze/rhonchi/rales CARDIOVASCULAR: RRR, no murmur, rub patricia. 2+ Rad pulse bilateral ABDOMEN: Soft, tender in the left lower quadrant, mild rebound present, decreased bowel sounds present. EXT: Full ROM, no edema, no rash Neuro: Grossly normal neurologic exam, conversant, interactive. Psych: Speech fluent, thoughts congruent, affect normal Course Vital Signs Vital signs: Vital Signs Temperature 36.8 C 12/26/21 13:18 Pulse 57 L 12/26/21 13:18 Respiratory Rate 16 12/26/21 13:18 Blood Pressure 113/61 12/26/21 13:18 Pulse Oximetry 96 12/26/21 13:18 Temperature 36.8 C 12/26/21 13:18 Temperature Source Skin 12/26/21 13:18 Pulse 57 L 12/26/21 13:18 Respiratory Rate 16 12/26/21 13:18 Blood Pressure 113/61 12/26/21 13:18 Blood Pressure Position Sitting 12/26/21 13:18 Pulse Oximetry 96 12/26/21 13:18 Oxygen Delivery Method Room Air 12/26/21 13:18 Oxygen Flow Rate 0 12/26/21 13:18 Pain Level 7 12/26/21 13:18
[2021-12-26 13:47] LABS: Abs Immature Grans 0.03 10^3/uL (0.0-0.06); Absolute Basophil Count 0.07 10^3/uL (0.0-0.2); Absolute Eosinophil Count 0.13 10^3/uL (0.0-0.7); Absolute Lymphocyte Count 2.43 10^3/uL (1.2-3.4); Absolute Monocyte Count 0.72 10^3/uL (0.1-0.8); Absolute Neutrophil Count 5.08 10^3/uL (1.2-6.7); Basophils % 0.8; Eosinophils % 1.5; HGB 13.1 g/dL (11.2-15.7); Immature Grans % 0.4; Lymphocytes % 28.7; MCHC 34.5 % (32.0-36.0); MCV 84 fL (80-95); Monocytes % 8.5; Neutrophils % 60.1; Platelet Count 372 10^3/uL (130-400); RBC 4.51 10^6/uL (3.93-5.22); RDW 13.4 % (11.7-14.6); RDW-SD 41.1 fL; WBC 8.46 10^3/uL (4.4-10.8)
[2021-12-26] MEDS: Normal Saline 1,000 ML 1000 ML IV (14:21)
[2021-12-26] MEDS: HYDROmorphone 2 MG/ML SYR 0.5 MG IVP (14:21)
[2021-12-26] MEDS: Ondansetron 4 MG/2 ML VIAL IVP (14:21)
[2021-12-26] MEDS: ACETAMINOPHEN 1,000 MG/100 ML BTL 400 MG IVPB (14:22)
[2021-12-26 14:40] LABS: ALT 63 U/L (14-59); AST 29 U/L (15-37); Albumin 3.5 g/dL (3.4-5.0); Alkaline Phosphatase 67 U/L (46-116); Anion Gap 9.6 mmol/L (3-11); BUN 14 mg/dL (7-18); Bilirubin, Total 0.2 mg/dL (0.2-1.0); CO2 23.4 mmol/L (21.0-32.0); CREATININE 0.9 mg/dL (0.55-1.02); Calcium 9.2 mg/dL (8.5-10.1); Chloride 107 mmol/L (98-107); Estimated GFR 79.85 (mL/min/1.73m2); Glucose 114 mg/dL (74-106); Potassium 3.6 mmol/L (3.5-5.1); Sodium 140 mmol/L (136-145); Total Protein 7.2 g/dL (6.4-8.2)
[2021-12-26 15:22] VITALS: BP 106/59; PULSE 48; RESP 16; O2SAT 98
[2021-12-26 16:05] VITALS: BP 108/58; RESP 16; O2SAT 98
== END 2021-12-26 16:16 | disposition home or self-care (01) ==
PROVIDERS: Emergency Provider Emergency Medicine; PCP Nurse Practitioner Family
DX: K57.92 Diverticulitis of intestine, part unspecified, without perforation or abscess without bleeding (principal); Z87.891 Personal history of nicotine dependence
CPT/HCPCS: 36415; 80053; 96361; 96374; 96375; 99284; 83735; 85025; J0131; J1170; J2405

== ENCOUNTER 2021-12-30 16:12 | Outpatient (REF) | payer MEDICAID, SELFPAY ==
--- NOTE | 2021-12-30 15:58 | CER_PTH ---
PATIENT: Christin Alfaro LOC: N U#:[id number] AGE/SX: 46/F ROOM: RE12/30/[address]: Zoya Mendosa MD : 1975 BED: DIS: 12/30/2021 SPEC #: [id number] RECD: 12/30/21 17:47 STATUS: RYANNE REQ #: [id number] SHAYLA: 12/30/21 15:[address]: Zoya Mendosa DEPT: Surgical Specimen RECD BY: Amina Aguilar ENTERED: 12/30/21 17:49 SP TYPE: CER OTHR DR: Subha Parker Tissues: 1 - CERVICAL BIOPSY Procedures: GROSS AND MICRO LEVEL 4 Comments: [id number]
--- NOTE | 2021-12-30 15:58 | PAPFT_PTH ---
PATIENT: Christin Alfaro LOC: [facility] U#:[id number] AGE/SX: 46/F ROOM: RE12/30/[address]: Zoya Mendosa MD : 1975 BED: DIS: 12/30/2021 SPEC #: [id number] RECD: 12/30/21 17:51 STATUS: WESSharif REQ #: [id number] SHAYLA: 12/30/21 15:[address]: Zoya Mendosa DEPT: [facility] Cytology RECD BY: Amina Aguilar ENTERED: 12/30/21 17:52 SP TYPE: PAPFT OTHR DR: Subha Parker Tissues: 1 - CX/ENDOCX FOR PAP SMEARS Procedures: PAP THIN PREP/U[facility] Screening HPV DNA PROBE Comments: [id number]
== END 2021-12-30 16:13 | disposition home or self-care (01) ==
LOC: LBN 16:12
PROVIDERS: PCP Nurse Practitioner Family; Visit Provider Obstetrics & Gynecology
DX: N84.1 Polyp of cervix uteri (principal); Z12.4 Encounter for screening for malignant neoplasm of cervix; Z11.51 Encounter for screening for human papillomavirus (HPV)
CPT/HCPCS: 88142; 88305; 87624

== ENCOUNTER 2022-01-03 12:59 | Emergency (ER) | payer MEDICAID, SELFPAY ==
[2022-01-03 13:08] VITALS: BP 125/75; PULSE 80; RESP 17; TEMP 37.1; O2SAT 98
--- NOTE | 2022-01-03 13:30 | DI.CT_ITS ---
Exam(s) CT ABDOMEN PELVIS W EXAM: CT ABDOMEN PELVIS W CLINICAL HISTORY: b/l lower abdominal pain. TECHNIQUE: Imaging Protocol: Axial computed tomography images with coronal and sagittal reformatted images were created and reviewed CONTRAST MATERIAL: Intravenous: Omnipaque 100cc Oral: None COMPARISON: CT CT ABDOMEN PELVIS W from 12/22/2021 FINDINGS: VISUALIZED LUNG BASES: No nodules nor pleural effusions evident. ABDOMEN: There is no ascites. LIVER: There are no focal hepatic lesions evident. No evidence of hepatic abscess nor air within the portal venous system, given the history of recent diverticulitis. GALLBLADDER/BILIARY: No obvious gallbladder pathology. CBD is not dilated. PANCREAS: No evidence of pancreatic mass nor dilatation of the pancreatic duct. SPLEEN: Spleen is not enlarged. No obvious intrasplenic lesions. Splenic and portal veins are paten t. ADRENALS: There are no significant adrenal masses. KIDNEYS:No cysts evident. No solid renal masses. No calculi nor hydronephrosis.. ABDOMINAL AORTA: Atherosclerotic distally but no aneurysm of the aorta nor of the iliac arteries. LYMPH NODES:There is no retroperitoneal nor paraaortic adenopathy. ABDOMINAL WALL: No evidence of significant anterior abdominal wall nor inguinal hernia. GI: There is no evidence of bowel obstruction, free air, nor abscess. PELVIS: GI: No evidence of appendicitis.There has been significant improvement at the site of previous sigmoi d diverticulitis seen on the CT scan of 12/22/2021. There are no new obvious sites of acute divertic ulitis elsewhere in the sigmoid nor elsewhere in the colon. There is no free fluid. There is no abs cess. LYMPH NODES: There is no intrapelvic nor inguinal adenopathy. REPRODUCTIVE: Age-appropriate URINARY BLADDER: No calculi nor obvious masses evident OSSEOUS: No significant osseous lesions. Chronic disc space narrowing L5-S1 level. No fractures evident IMPRESSION: 1. Compared to CT scan of 12/22/2021 there has been significant improvement in the sigmoid diverticul itis. There is presently no evidence of obvious acute diverticulitis. No evidence of abscess within the pelvis nor intrahepatic abscess. Also no evidence of acute appendicitis. RADIATION DOSE DELIVERED: Total DLP DATA REPOSITORY: All CT scans at this facility are submitted to the National Radiology Data Registry (NRDR) Dose Index Registry (DIR) with the [employer] (A[employer]). RADIATION OPTIMIZATION: All CT scans at this facility use at least one of these dose optimization te chniques: automated exposure control; mA and/or kV adjustment per patient size (includes targeted exa ms where dose is matched to clinical indication); or iterative reconstruction.
--- NOTE | 2022-01-03 13:48 | W.ED.GENAD ---
Discharge Plan Disposition Patient Disposition: HOME Condition: Good Discharge Details Chief Complaint: Abd Prob Clinical Impression: Diarrhea, Abdominal pain Primary Care Provider: Subha Parker ED Provider: Rodrigo Rosen Home Meds and New Rx's Prescriptions: No Action medroxyprogesterone [Depo-Provera] 150 mg/mL syringe 150 mg IM .Q13W Qty: 1 4RF Rx Instructions: Bring to appt cholecalciferol (vitamin D3) [Vitamin D3] 25 mcg (1,000 unit) Capsule 25 mcg PO DAILY Probiotic 10 billion cell Capsule 10,000 mmu cells PO DAILY ibuprofen 600 mg tablet 600 mg PO TID PRN (Reason: pain) Qty: 30 3RF acetaminophen 500 mg tablet 1,000 mg PO Q8H PRN (Reason: pain) Qty: 60 3RF oxycodone [Roxicodone] 5 mg tablet 5 mg PO BID PRN (Reason: pain) Qty: 5 0RF Discharge Instructions Instructions: Abdominal Pain (ED) Additional Instructions: As we discussed together please stick with a diet high in fiber, and avoid any fatty, greasy, tomato-based, or spicy things. Please follow-up closely with your primary care provider. Please return with your stool sample for further testing. This can be brought to the [facility] lab. If you notice any worsening of your symptoms, or any new symptoms such as vomiting, diarrhea, fever, chills, shortness of breath, chest pain, numbness, weakness, or fainting , please return immediately to the emergency department for reevaluation. Please follow up with your primary care provider as soon as possible for reassessment and reevaluation. As always, it was a pleasure participating in your medical care today. Referrals: Subha Parker [Primary Care Provider] - Discharge Data Discharge Date/Time-TO BE ENTERED AT DEPARTURE: 01/03/22 18:23 Medical Decision Making <Josefina Grey MD - Last Filed: 01/24/22 08:21> Concern for sequelae of diverticulitis e.g. abscess/perforation, appendicitis, C. difficile infection, dehydration, bleeding hemorrhoids, lower GI bleed, other. Exam/hx at this time not c/w cardiac etiology, acute aortic pathology, PID, major GI hemorrhage. Plan for IV placement, IV fluid hydration, IV Zofran, IV morphine, screening labs, CT abdomen/pelvis, UA, urine . Will monitor and reassess. Labs reviewed, WBC 8.28, hemoglobin 14.0, anion gap 8.5, creatinine 1.0. Patient signed out to Dr. Rosen at time of shift change with CT, C diff, reassessment pending. Exercises documentation Patient was signed out to me by my colleague Dr. Grey. Please refer to HPI, physical exam, assessment and plan. On reassessment the patient is feeling much better. She feels well, she has no complaints. Repeat abdominal exam shows no signs of an acute surgical abdomen. Laboratory work-up is stable. No white count, bandemia or left shift. CT scan shows no evidence of diverticulitis. At this time with the patient's complete resolution of pain, she is requesting discharge and I do feel that this is reasonable. We will give her a stool sample cup to go home with an outpatient lab orders for C. difficile, infectious diarrhea components. She has not been able to have a bowel movement here. Discussed red flags for which to return. I have extensively reviewed the treatment plan and discharge instructions with the patient. I have addressed all patient concerns at this time. The patient was made aware of what symptoms to monitor for that would warrant a return to the emergency department. Discussed the plan with the patient, they demonstrate verbal understanding and agreement with our assessment and plan at this time. The documentation in this chart was dictated using [email or web address] dictation software. Please excuse any dictation errors. FINDINGS: Liver: Normal. No mass. Gallbladder and bile ducts: Normal. No calcified stones. No ductal dilation. Pancreas: Normal. No ductal dilation. Spleen: Normal. No splenomegaly. Adrenal glands: Normal. No mass. Kidneys and ureters: Normal. No hydronephrosis. Stomach and bowel: Again noted is mild diverticulosis of the distal descending colon and sigmoid colon. The prior findings of acute diverticulitis of the proximal sigmoid colon have nearly completely resolved, with minimal residual fat stranding and fascial thickening in this region. The small bowel appears normal. There is no evidence for bowel obstruction. Appendix: The appendix is well visualized and appears normal. Intraperitoneal space: There is no evidence of free intraperitoneal fluid. Vasculature: The aorta and iliac arteries demonstrate moderate atherosclerotic calcification without aneurysm formation. Lymph nodes: Unremarkable. No enlarged lymph nodes. Urinary bladder: Unremarkable as visualized. Reproductive: Uterus is partially retroverted, as on prior study.There is no free intraperitoneal air. Bones/joints: Again noted is mild degenerative change of multiple lumbar levels, most marked at L5- S1. No acute fractures are identified. Soft tissues: There is a 1.2 x 0.7 cm fat containing umbilical hernia, unchanged from prior study. IMPRESSION: 1. The prior findings of acute diverticulitis of the proximal sigmoid colon have nearly completely resolved. 2. No acute process within the abdomen or pelvis identified. 3. Tiny fat containing umbilical hernia. Thank you for allowing us to participate in the care of your patient. Dictated and Authenticated by: Tony Rivas MD 01/03/2022 5:47 PM Eastern Time ([place] & [place]) Medical Records Medical records reviewed: Yes I reviewed the patient's medical records. Lab Data Lab results reviewed: Yes I reviewed the patient's lab results. <Rodrigo Rosen, - Last Filed: 01/03/22 22:47> Concern for sequelae of diverticulitis e.g. abscess/perforation, appendicitis, C. difficile infection, dehydration, bleeding hemorrhoids, lower GI bleed, other. Exam/hx at this time not c/w cardiac etiology, acute aortic pathology, PID, major GI hemorrhage. Plan for IV placement, IV fluid hydration, IV Zofran, IV morphine, screening labs, CT abdomen/pelvis, UA, urine . Will monitor and reassess. Exercises documentation Patient was signed out to me by my colleague Dr. Grey. Please refer to HPI, physical exam, assessment and plan. On reassessment the patient is feeling much better. She feels well, she has no complaints. Repeat abdominal exam shows no signs of an acute surgical abdomen. Laboratory work-up is stable. No white count, bandemia or left shift. CT scan shows no evidence of diverticulitis. At this time with the patient's complete resolution of pain, she is requesting discharge and I do feel that this is reasonable. We will give her a stool sample cup to go home with an outpatient lab orders for C. difficile, infectious diarrhea components. She has not been able to have a bowel movement here. Discussed red flags for which to return. I have extensively reviewed the treatment plan and discharge instructions with the patient. I have addressed all patient concerns at this time. The patient was made aware of what symptoms to monitor for that would warrant a return to the emergency department. Discussed the plan with the patient, they demonstrate verbal understanding and agreement with our assessment and plan at this time. The documentation in this chart was dictated using [email or web address] dictation software. Please excuse any dictation errors. FINDINGS: Liver: Normal. No mass. Gallbladder and bile ducts: Normal. No calcified stones. No ductal dilation. Pancreas: Normal. No ductal dilation. Spleen: Normal. No splenomegaly. Adrenal glands: Normal. No mass. Kidneys and ureters: Normal. No hydronephrosis. Stomach and bowel: Again noted is mild diverticulosis of the distal descending colon and sigmoid colon. The prior findings of acute diverticulitis of the proximal sigmoid colon have nearly completely resolved, with minimal residual fat stranding and fascial thickening in this region. The small bowel appears normal. There is no evidence for bowel obstruction. Appendix: The appendix is well visualized and appears normal. Intraperitoneal space: There is no evidence of free intraperitoneal fluid. Vasculature: The aorta and iliac arteries demonstrate moderate atherosclerotic calcification without aneurysm formation. Lymph nodes: Unremarkable. No enlarged lymph nodes. Urinary bladder: Unremarkable as visualized. Reproductive: Uterus is partially retroverted, as on prior study.There is no free intraperitoneal air. Bones/joints: Again noted is mild degenerative change of multiple lumbar levels, most marked at L5- S1. No acute fractures are identified. Soft tissues: There is a 1.2 x 0.7 cm fat containing umbilical hernia, unchanged from prior study. IMPRESSION: 1. The prior findings of acute diverticulitis of the proximal sigmoid colon have nearly completely resolved. 2. No acute process within the abdomen or pelvis identified. 3. Tiny fat containing umbilical hernia. Thank you for allowing us to participate in the care of your patient. Dictated and Authenticated by: Tony Rivas MD 01/03/2022 5:47 PM Eastern Time ([place] & [place]) HPI <Josefina Grey MD - Last Filed: 01/24/22 08:21> General Mode of arrival: ambulatory. Date/Time Provider Initiated Documentation: 01/03/22 13:23. Limitations to Documentation: no limitations. Information obtained by: patient, RN notes reviewed and old records reviewed. HPI Narrative: Christin Alfaro is a 46-year-old woman with a history Dupuytren's disease, GERD, diverticulitis, C diff 2017 presenting to emergency department with lower abdominal pain. Patient reports that she was recently diagnosed with diverticulitis 12/22/[address] scan for abdominal pain in the emergency department and has been treated with antibiotics. Patient had a repeat visit to the emergency department 12/26/2021 for continued abdominal pain and diarrhea, was discharged home with plan to continue antibiotics. Patient reports that the last day of both of her antibiotics is today. Patient reports that since her visit 12/26/2021, her pain has migrated from the left lower quadrant to involve the right lower quadrant as well, and has become somewhat more severe. She reports that she continues to have diarrhea, although it is somewhat less watery than it had been earlier in the course. Patient reports that since yesterday she has noticed some bright red blood in the toilet water and on toilet paper with bowel movements, unsure if it has been in her stool. She denies any black or tarry stools. She has also had intermittent vomiting over the past week, though has been able to hold down some food and fluids. She denies fever, cough, shortness of breath, rash, numbness, weakness. Related Data Home Medications Medication Instructions Recorded Confirmed cholecalciferol (vitamin D3) 25 25 mcg PO DAILY 05/11/21 01/03/22 mcg (1,000 unit) capsule (Vitamin D3) Lactobacillus acidophilus 10 10,000 mmu cells PO DAILY 09/22/21 01/03/22 billion cell capsule (Probiotic) acetaminophen 500 mg tablet 1,000 mg PO Q8H PRN pain #60 tabs 09/22/21 01/03/22 ibuprofen 600 mg tablet 600 mg PO TID PRN pain #30 tabs 09/22/21 01/03/22 oxycodone 5 mg tablet (Roxicodone) 5 mg PO BID PRN pain #5 tabs 12/26/21 01/03/22 medroxyprogesterone 150 mg/mL 150 mg IM .Q13W #1 mL 12/30/21 01/03/22 intramuscular syringe (Depo-Provera) Previous Rx's Medication Instructions Recorded acetaminophen 500 mg tablet 1,000 mg PO Q8H PRN pain #60 tabs 09/22/21 ibuprofen 600 mg tablet 600 mg PO TID PRN pain #30 tabs 09/22/21 oxycodone 5 mg tablet (Roxicodone) 5 mg PO BID PRN pain #5 tabs 12/26/21 medroxyprogesterone 150 mg/mL 150 mg IM .Q13W #1 mL 12/30/21 intramuscular syringe (Depo-Provera) Allergies Allergy/AdvReac Type Severity Reaction Status Date / Time doxycycline Allergy Intermediate shakes/hive Verified 01/03/22 13:11 s General Stated Complaint: Abd Prob HARVEY: 3 Review of Systems <Josefina Grey MD - Last Filed: 01/24/22 08:21> Narrative: Constitutional: denies fevers Eyes: denies eye pain ENT: denies ear pain, dental pain, sore throat Cardiovascular: denies chest pain, edema Respiratory: denies SOB, cough GI: Reports abdominal pain, vomiting, diarrhea : denies flank pain MSK: denies back pain, neck pain, arthralgias, myalgias Skin: denies rash Neuro: denies headaches, numbness, weakness PFSH <Josefina Grey MD - Last Filed: 01/24/22 08:21> All Active Problems (Updated 01/22/22 @ 00:[address] [facility]) Diarrhea (Acute) Abdominal pain (Acute) Flexor tenosynovitis of finger (Acute) Fatigue (Acute) Medical History Anxiety with depression Clostridioides difficile infection Contraceptive surveillance Diverticulitis Dupuytren's disease GERD (gastroesophageal reflux disease) History of HPV infection Hx gestational diabetes Hx of carpal tunnel syndrome Infectious disease exposure Insomnia Reflux esophagitis Surgical History History of carpal tunnel release History of colonoscopy History of esophagogastroduodenoscopy (EGD) History of surgery right foot History of tubal ligation Trigger middle finger of right hand Depo-Medrol injection: 05/03/2021 S/P Release: 09/30/2021 S/P Revision Release: 11/09/2021 Social History Smoking/Tobacco Use Status: Former Tobacco Use Quit Date: 10/04/20 Smoking risk assessment performed?: Yes Alcohol Intake: current Alcohol Intake frequency: holidays/special occasions only Drug use: Daily Substance use type: marijuana Details: uses to sleep, not last night used CBD gummies Do you feel safe at home: Yes Do you feel safe in your relationship?: Yes Female Reproductive History Menstrual control method: progesterone injection History History 4 Para 3 Hx # Term Pregnancies Multiple births Hx # Pregnancies Ectopic pregnancies AB induced Hx Number of Living Children AB spontaneous 1 Past Pregnancies Del. Date GA/Weeks # Preg Succ Route Wgt Sex Labor Lgth Anesthesia Location Prov [facility] 04/04/95 40 No Yes vaginal 3217.671 g Female [place] 07/16/00 40 No Yes vaginal 3883.885 g Female [place] 03/02/05 39 No Yes 3685.438 g Female [facility] Delivery Date: 07/16/00 Last Updated by: Michelle Gale Placental abruption Delivery Date: 03/02/05 Last Updated by: Michelle Gale c section- baby breech, mom had GDM Exam <Josefina Grey MD - Last Filed: 01/24/22 08:21> Narrative Exam Narrative: Constitutional: well and [id number], pleasant, conversing normally HENT: head atraumatic/normocephalic/normal inspection, mucous membranes moist Eyes: conjunctiva normal, sclera normal, pupils 3mm b/l Neck: no stridor, normal ROM, trachea midline Resp: normal work of breathing, speaking in full sentences Cardio: normal rate, normal rhythm GI: abdomen soft, tenderness to palpation across lower abdomen, somewhat worse in the suprapubic area and right lower quadrant, no upper abdominal tenderness to palpation, no rebound, no guarding, non-distended, patient requests to defer rectal exam at this time Skin: warm, dry, normal color, no rash Neuro: alert, not altered, grossly non-focal, normal tone Ext: no edema, moving all extremities equally Psych: normal mood, normal affect, normal behavior Course <Josefina Grey MD - Last Filed: 01/24/22 08:21> Vital Signs Vital signs: Vital Signs Temperature 37.1 C 01/03/22 13:08 Pulse 80 01/03/22 13:08 Respiratory Rate 17 01/03/22 13:08 Blood Pressure 125/75 01/03/22 13:08 Pulse Oximetry 98 01/03/22 13:08 Temperature 37.1 C 10/31/22 13:08 Temperature Source Temporal Artery Scan 01/03/22 13:08 Pulse 80 01/03/22 13:08 Respiratory Rate 17 01/03/22 13:08 Respiratory Effort Non-Labored 01/03/22 13:10 Blood Pressure 125/75 01/03/22 13:08 Blood Pressure Position Sitting 01/03/22 13:08 Pulse Oximetry 98 01/03/22 13:08 Oxygen Delivery Method Room Air 01/03/22 13:08 Oxygen Flow Rate 0 01/03/22 13:08 Pain Level 6 01/03/22 13:08 Sign Out <Josefina Grey MD - Last Filed: 01/24/22 08:21> Sign Out Data: Sign Out Comment: Patient signed out to Dr. Rosen pending CT, C. difficile, reassessment. Last updated by Josefina Grey MD at 01/03/22 15:40
[2022-01-03 14:18] LABS: Bilirubin Negative (Negative); Blood Negative (Negative); Clarity Clear (Clear); Glucose Negative (Negative); Ketones Negative (Negative); Leukocyte Esterase Trace (Negative); Nitrite Negative (Negative); Specific Gravity >= 1.030 (1.005-1.025); Urobilinogen 0.2 EU/dL (Up TO 0.2)
[2022-01-03 14:23] LABS: Bacteria Few HPF (Negative); C & S Indicated? No/Sq. Contamination; Casts Negative LPF (Negative); Crystals Negative HPF (Negative); Epithelial Cells Moderate HPF (Negative); Mucus Heavy (Negative); RBC 0-2 HPF (0-2)
[2022-01-03 14:42] LABS: Abs Immature Grans 0.02 10^3/uL (0.0-0.06); Absolute Basophil Count 0.08 10^3/uL (0.0-0.2); Absolute Eosinophil Count 0.12 10^3/uL (0.0-0.7); Absolute Lymphocyte Count 2.29 10^3/uL (1.2-3.4); Absolute Monocyte Count 0.65 10^3/uL (0.1-0.8); Absolute Neutrophil Count 5.12 10^3/uL (1.2-6.7); Eosinophils % 1.4; HCT 41.4 % (36.0-46.0); Immature Grans % 0.2; Lymphocytes % 27.7; MCH 28.9 pg (27.0-33.0); MCHC 33.8 % (32.0-36.0); MCV 86 fL (80-95); MPV 10.5 fL (8.0-11.0); Monocytes % 7.9; Neutrophils % 61.8; Platelet Count 355 10^3/uL (130-400); RBC 4.84 10^6/uL (3.93-5.22); RDW 13.7 % (11.7-14.6); RDW-SD 42.7 fL; WBC 8.28 10^3/uL (4.4-10.8)
[2022-01-03] MEDS: Normal Saline 1,000 ML 1000 ML IV (14:45)
[2022-01-03] MEDS: Ondansetron 4 MG/2 ML VIAL IVP (14:50)
[2022-01-03] MEDS: MORPHine 4 MG/ML SYR IVP (14:55)
[2022-01-03 14:56] LABS: ALT 45 U/L (14-59); AST 25 U/L (15-37); Albumin 4.2 g/dL (3.4-5.0); Alkaline Phosphatase 69 U/L (46-116); Anion Gap 8.5 mmol/L (3-11); BUN 14 mg/dL (7-18); Bilirubin, Total 0.4 mg/dL (0.2-1.0); CO2 24.5 mmol/L (21.0-32.0); Calcium 9.3 mg/dL (8.5-10.1); Chloride 107 mmol/L (98-107); Estimated GFR 70.36 (mL/min/1.73m2); Glucose 112 mg/dL (74-106); Lipase 95 U/L (73-393); Potassium 3.6 mmol/L (3.5-5.1); Sodium 140 mmol/L (136-145)
[2022-01-03 15:02] VITALS: BP 106/60; PULSE 58; RESP 14; O2SAT 96
[2022-01-03 16:56] VITALS: BP 104/22; PULSE 58; RESP 14; TEMP 37.1; O2SAT 96
[2022-01-03] MEDS: Normal Saline Flush 10 ML SYR IVP (17:19)
[2022-01-03] MEDS: Omnipaque 350 MG/ML 100 ML BTL IJ (17:19)
[2022-01-03] MEDS: Normal Saline - Diluent 50 ML VIAL IV (17:22)
--- NOTE | 2022-01-03 17:48 | DI.VRAD_ITS ---
PROCEDURE INFORMATION: Exam: CT Abdomen And Pelvis With Contrast Exam date and time: 01/03/2022 5:25 PM Age: 46 years old Clinical indication: Other: B/l lower abdominal pain TECHNIQUE: Imaging protocol: Computed tomography of the abdomen and pelvis with contrast. Contrast material: OMNIPAQUE 350; Contrast volume: 100 ml; Contrast route: INTRAVENOUS (IV); COMPARISON: CT ABDOMEN PELVIS W 12/22/2021 7:01 PM FINDINGS: Liver: Normal. No mass. Gallbladder and bile ducts: Normal. No calcified stones. No ductal dilation. Pancreas: Normal. No ductal dilation. Spleen: Normal. No splenomegaly. Adrenal glands: Normal. No mass. Kidneys and ureters: Normal. No hydronephrosis. Stomach and bowel: Again noted is mild diverticulosis of the distal descending colon and sigmoid colon. The prior findings of acute diverticulitis of the proximal sigmoid colon have nearly completely resolved, with minimal residual fat stranding and fascial thickening in this region. The small bowel appears normal. There is no evidence for bowel obstruction. Appendix: The appendix is well visualized and appears normal. Intraperitoneal space: There is no evidence of free intraperitoneal fluid. Vasculature: The aorta and iliac arteries demonstrate moderate atherosclerotic calcification without aneurysm formation. Lymph nodes: Unremarkable. No enlarged lymph nodes. Urinary bladder: Unremarkable as visualized. Reproductive: Uterus is partially retroverted, as on prior study.There is no free intraperitoneal air. Bones/joints: Again noted is mild degenerative change of multiple lumbar levels, most marked at L5-S1. No acute fractures are identified. Soft tissues: There is a 1.2 x 0.7 cm fat containing umbilical hernia, unchanged from prior study. IMPRESSION: 1. The prior findings of acute diverticulitis of the proximal sigmoid colon have nearly completely resolved. 2. No acute process within the abdomen or pelvis identified. 3. Tiny fat containing umbilical hernia. Dictated and Authenticated by: Tony Rivas MD. Ordering:NATHAN Rocha MD
== END 2022-01-03 18:23 | disposition home or self-care (01) ==
PROVIDERS: Student in an Organized Health Care Education/Training Program; Emergency Provider Student in an Organized Health Care Education/Training Program; PCP Nurse Practitioner Family
DX: R19.7 Diarrhea, unspecified (principal); R10.32 Left lower quadrant pain; R10.31 Right lower quadrant pain; K57.32 Diverticulitis of large intestine without perforation or abscess without bleeding
CPT/HCPCS: 36415; 80053; 81025; 83690; 96361; 96374; 96375; 99285; 74177; 81003; 81015; 85025; 99284; J2270; J2405; J3490

== ENCOUNTER → 2022-01-24 01:19 | Outpatient (CLI) | payer MEDICAID, SELFPAY ==
--- NOTE | 2022-01-24 08:53 | DI.MAMMO_ITS ---
Exam(s) MAMMO SCREENING EXAM: MAMMO SCREENING CLINICAL HISTORY: screening TECHNIQUE: Mammograms were interpreted according to the usual protocol including computer analysis w [employer] CAD system, tomosynthesis and C-view imaging. COMPARISON: None. Baseline exam FINDINGS: The breasts are composed of mainly fatty density , Breast Density category A. No suspicious masses or suspicious microcalcifications are seen. No skin thickening or abnormal axillary lymph nodes are seen. IMPRESSION: BI-RADS Category 1, Negative mammogram Yearly screening mammography is recommended. Breast Density - Category A, fatty density. A negative radiographic report should not delay biopsy if a dominant or clinically suspicious mass is present. Up to ten percent of cancers are not identified on mammography. A negative report may reinforce clinical impression. Adenosis and dense breasts may obscure an underlying neoplasm. False positive reports average 6 to 10%. Patient will receive a letter notifying them of these results.
== END ==
PROVIDERS: PCP Nurse Practitioner Family; Visit Provider Obstetrics & Gynecology
DX: Z12.31 Encounter for screening mammogram for malignant neoplasm of breast (principal)
CPT/HCPCS: 77063; 77067

== ENCOUNTER 2023-12-22 05:45 | Emergency (ER) | payer SELFPAY ==
[2023-12-22 05:49] VITALS: BP 167/148; PULSE 65; RESP 18; TEMP 36.9; O2SAT 99
--- NOTE | 2023-12-22 05:58 | W.ED.GENAD ---
Discharge Plan Disposition Patient Disposition: Home Condition: Good Discharge Details Clinical Impression: Constipation Primary Care Provider: Subha Parker ED Provider: Patricia Frazier Home Meds and New Rx's Prescriptions: Continued Probiotic 10 billion cell Capsule 10,000 mmu cells PO DAILY ibuprofen 600 mg tablet 600 mg PO TID PRN (Reason: pain) Qty: 30 3RF acetaminophen 500 mg tablet 1,000 mg PO Q8H PRN (Reason: pain) Qty: 60 3RF Discontinued medroxyprogesterone [Depo-Provera] 150 mg/mL syringe 150 mg IM .Q13W Qty: 1 4RF Rx Instructions: Bring to appt cholecalciferol (vitamin D3) [Vitamin D3] 25 mcg (1,000 unit) Capsule 25 mcg PO DAILY oxycodone [Roxicodone] 5 mg tablet 5 mg PO BID PRN (Reason: pain) Qty: 5 0RF Discharge Instructions Instructions: Constipation, Adult ED Additional Instructions: If you do not have a bowel movement by this afternoon, please take a second dose of magnesium citrate. You can get this over the counter; follow the directions on the bottle. This medication will likely cause abdominal cramping and diarrhea; this is expected. If despite this you do not have a bowel movement by this evening, please try a saline enema. You can also purchase these over the counter; follow the directions on the bottle. Call your primary care doctor today to schedule an appointment for within the next 72 hours to followup on your visit here. Return to the emergency department for new or worsening symptoms including abdominal pain, nausea or vomiting, fever, or if you have any other concerns. Referrals: Subha Parker [Primary Care Provider] - [facility] General Mode of arrival: ambulatory. Date/Time Provider Initiated Documentation: 12/22/23 05:48. Limitations to Documentation: no limitations. Information obtained by: patient. HPI Narrative: 48yo previously healthy female presenting for constipation. Last normal bowel movement was one week ago, soft, formed, brown. Over the past week has felt the urge to have a bowel movement but not produced any formed stool. Has tried dulcolax and milk of magnesia; did have one episode of diarrhea. This was not satisfying and she still feels stopped up. No blood. No abdominal pain, does report some mild abdominal pressure and fullness. No fevers, nausea, or vomiting. Otherwise in her usual state of health with no rash, dysuria, hematuria, chest pain, shortness of breath, or other concerns. Related Data Home Medications ?Medication ?Instructions ?Recorded ?Confirmed Lactobacillus acidophilus 10 10,000 mmu cells PO DAILY 09/22/21 12/22/23 billion cell capsule (Probiotic) acetaminophen 500 mg tablet 1,000 mg (2 x 500 mg) PO Q8H PRN 09/22/21 12/22/23 pain #60 tabs ibuprofen 600 mg tablet 600 mg PO TID PRN pain #30 tabs 09/22/21 12/22/23 Previous Rx's ?Medication ?Instructions ?Recorded acetaminophen 500 mg tablet 1,000 mg (2 x 500 mg) PO Q8H PRN 09/22/21 pain #60 tabs ibuprofen 600 mg tablet 600 mg PO TID PRN pain #30 tabs 09/22/21 Allergies Allergy/AdvReac Type Severity Reaction Status Date / Time doxycycline Allergy Intermediate shakes/hive Verified 12/22/23 05:58 s General Stated Complaint: Abd Prob HARVEY: 3 Review of Systems Narrative: see HPI Exam Narrative Exam Narrative: General: Alert, well appearing, well nourished, in no acute distress. Head: Normocephalic, atraumatic Neck: Trachea midline, ?Neck supple. ENT: ?MMM.? No oropharygeal lesions or exudate. Cardiac: ?RRR, no murmurs appreciated Resp: No respiratory distress. CTAB. Abd: ?Soft, non-distended, nontender Rectal: No fissures, mass, or tenesmus. No palpable stool in rectal vault. : ?No suprapubic tenderness. Extremities: ?No deformities.? No peripheral edema. Neurologic: GCS 15. ? Moves all extremities freely against gravity Course Vital Signs Vital signs: Vital Signs Temperature 36.9 C 12/22/23 05:49 Pulse 65 12/22/23 05:49 Respiratory Rate 18 12/22/23 05:49 Blood Pressure 167/148 H 12/22/23 05:49 Pulse Oximetry 99 12/22/23 05:49 Temperature 36.9 C 12/22/23 05:49 Pulse 65 12/22/23 05:49 Respiratory Rate 18 12/22/23 05:49 Respiratory Effort Normal 12/22/23 05:56 Blood Pressure 167/148 H 12/22/23 05:49 Blood Pressure Position Sitting 12/22/23 05:49 Pulse Oximetry 99 12/22/23 05:49 Medical Decision Making 48yo previously healthy female presenting for constipation. Last normal bowel movement was one week ago, soft, formed, brown. Over the past week has felt the urge to have a bowel movement but not produced any formed stool. No abdominal pain, nausea, or vomiting. Hypertensive on arrival, vital signs otherwise reassuring. Well appearing with no abdominal tenderness on exam. Not concerned for bowel obstruction, fecal impaction, stercoral colitits; would not get labs or CT imaging at this time. Reviewed treatment of constipation with patient including importance of adequate fluid intake. Will give dose of mag citrate here and advised 2nd dose later today if no effect, OTC saline enema this evening if still no relief. Repeat VS with improved BP. Discharged home to followup with PCP; discharge instructions and return precautions were reviewed with patient who verbalized understanding. All questions were answered and she is in full agreement with the plan. Quality:SDOH Health Related Social Needs: No Data to Display PFSH All Active Problems (Updated 12/22/23 @ 06:11 by Patricia Frazier MD) Constipation (Acute) Flexor tenosynovitis of finger (Acute) Fatigue (Acute) Medical History Anxiety with depression Clostridioides difficile infection Contraceptive surveillance Diverticulitis Dupuytren's disease GERD (gastroesophageal reflux disease) History of HPV infection Hx gestational diabetes Hx of carpal tunnel syndrome Infectious disease exposure Insomnia Reflux esophagitis Surgical History History of carpal tunnel release History of colonoscopy History of esophagogastroduodenoscopy (EGD) History of surgery right foot History of tubal ligation Trigger middle finger of right hand Depo-Medrol injection: 05/03/2021 S/P Release: 09/30/2021 S/P Revision Release: 11/09/2021 Social History Smoking/Tobacco Use Status: Former Tobacco Use Quit Date: 10/04/20 Smoking risk assessment performed?: Yes Alcohol Intake: current Alcohol Intake frequency: holidays/special occasions only Drug use: Daily Substance use type: marijuana Details: uses to sleep, not last night used CBD gummies Do you feel safe at home: Yes Do you feel safe in your relationship?: Yes Female Reproductive History Menstrual control method: progesterone injection History History 4 Para 3 Hx # Term Pregnancies Multiple births Hx # Pregnancies Ectopic pregnancies AB induced Hx Number of Living Children AB spontaneous 1 Past Pregnancies Del. Date GA/Weeks # Preg Succ Route Wgt Sex Labor Lgth Anesthesia Location Prov Compl 04/04/95 40 No Yes vaginal 3217.671 g Female [facility] 07/16/00 40 No Yes vaginal 3883.885 g Female [facility] 03/02/05 39 No Yes 3685.438 g Female [facility] Delivery Date: 07/16/00 Last Updated by: Michelle Gale Placental abruption Delivery Date: 03/02/05 Last Updated by: Michelle Gale c section- baby breech, mom had GDM
[2023-12-22 05:59] VITALS: BP 148/82; PULSE 63; RESP 18; O2SAT 98
[2023-12-22] MEDS: Magnesium Citrate 300 ML BTL 150 ML PO (06:23)
--- OUTSIDE RECORDS SUMMARY | 2023-12-22 06:34 | XMS_ITS | Encounter Summary ---
Author Organization [facility] Address [address] [place] [address] Care Team Providers Care Clerk Television Production Name Role Phone Unavailable Primary Care Provider Unavailabl e Encounter Details Date Type Department Care Team (Late st Contact Info) Description 08/23/2005 Results Only [facility] - Maple conversion [address] [place] [address] Jeannine Little, [facility] [address] [place] [address] [place] [phone] Social History Tobacco Use Types Packs/Day Years Used Date Smoking Tobacco: Never Assessed Sex and Gender Information Value Date Recorded Sex Assigned at Not on file Gender Identity Not on file Sexual Orientation Not on file documented as of this encounter Plan of Treatment Not on file documented as of this encounter Procedures Procedure Name Priority Date/Time Associated Diagnosis Comments CYTOPATHOLOGY Routine 08/23/2005 0:00 EDT documented in this encounter Results * CYTOPATHOLOGY (08/23/2005 0:00 EDT) Pathology Report: CYTOPATHOLOGY REPORT Reports generated via electronic interface contain original data; however they are lacking the format of the original report. Caution should be taken when reading/interpreti ng unformatted reports. Name: ? CHRISTIN ALFARO ? Accession #: ? [id number] : ? 1975 (Age: 29) ??F ?Collect Date: ? 08/23/2005 Location: ? [facility] ? Receive Date: ? 08/24/2005 Provider: ?JEANNINE LITTLE CONCRETE MIXING TRUCK DRIVER Copy to: ? Specimen/Source: ?ThinPrep Pap Test, Cervix/Endocervix, processed on SmallknotPrep Imaging System, with manual evaluation Last Menstrual Period: ? 07/29/05 Previous Gynecologic Pathology: ? VAIN HSIL HPV Other: ? Additional clinical information: Condyloma, vulvar vag. lesion HPVA - HPV testing requested if ASC-US on the current ThinPrep Pap test. ? SPECIMEN ADEQUACY ? Satisfactory for Evaluation - transformation zone component present GENERAL CATEGORIZATION ? Epithelial Cell Abnormality INTERPRETATION ? Squamous Cell Abnormality - Atypical squamous cells, undetermined significance. EDUCATIONAL NOTES/RECOMMENDATI ONS ? [facility] recommends following the 2001 Consensus Guidelines for the Management of Women with Cervical Cytological Abnormalities (AMIE,2002;287:212 0-9). Management algorithms have been distributed by [facility] and are available online at www.ASCCP.org. ? Document reviewed and electronically signed by: ? JEFF JACOBSEN MD ? Report Date: ??08/29/2005 09:37 End of Report [facility] 08/23/2005 08/24/2005 Jeannine Little CONCRETE MIXING TRUCK DRIVER PATHOLOGY ORDERABLES [facility] [address] [place] [address] documented in this encounter Visit Diagnoses Not on filedocumented in this encounter
--- OUTSIDE RECORDS SUMMARY | 2023-12-22 06:34 | XMS_ITS | Clinical Summary ---
Author Organization [facility] [place] [address] Care Team Providers Care Route Delivery Service Driver Name Role Phone Unavailable Primary Care Provider Unavailabl e Social History Tobacco Use Types Packs/Day Years Used Date Smoking Tobacco: Never Assessed Sex and Gender Information Value Date Recorded Sex Assigned at Not on file Gender Identity Not on file Sexual Orientation Not on file Plan of Treatment Health Maintenance Due Date Last Done Comments CT Colonography 1975 Colonoscopy 1975 Colorectal Cancer Screening 1975 FIT DNA 1975 FIT 1975 Sigmoidoscopy (10 year) with FIT yearly 1975 Sigmoidoscopy 1975 HIV screen 09/23/1993 Hepatitis C Screening 09/23/1993 Hepatitis B vaccine (0-59 yrs) (1) 09/23/1994 Tetanus/Diphtheria/Pertussis Vaccines (1 - Tdap) 09/23 HPV test 09/23/2005 PAP Smear 09/23/2005 Breast Cancer Share Decision Needed 2015 Breast Cancer screening 2015 Covid-19 Vaccine ( - season) 2023 Influenza (Flu) vaccine (1 o f 1 - Influenza standard series) 11/05/2023
--- OUTSIDE RECORDS SUMMARY | 2023-12-22 06:34 | XMS_ITS | Encounter Summary ---
Author Organization [facility] Address [address] [place] [address] Care Team Providers Care Ec Teacher Name Role Phone Unavailable Primary Care Provider Unavailabl e Encounter Details Date Type Department Care Team (Latest Contact Info) Description 08/23/2005 8:52 EDT - 08/23/2005 11:59 EDT Hospital Encounter [facility] - Other [address] [place] [address] Jeannine Little, [address] [place] [id number] Discharge Disposition: Auto Discharge Social History Tobacco Use Types Packs/Day Years Used Date Smoking Tobacco: Never Assessed Sex and Gender Information Value Date Recorded Sex Assigned at Not on file Gender Identity Not on file Sexual Orientation Not on file documented as of this encounter Discharge Disposition Disposition Code Departure Means Destination Auto Discharge documented in this encounter Plan of Treatment Not on file documented as of this encounter Procedures Procedure Name Priority Date/Time Associated Diagnosis Comments HPV DETECTION, HIGH RISK TYPES Routine 08/23/2005 8:42 EDT documented in this encounter Results * HUMAN PAPILLOMA VIRUS DNA TEST (08/23/2005 8:42 EDT) Specimen Description Cervix, ThinPrep vial [facility] Result Positive for one or more of HPV types 16,18,31,33,35 ,39,45,51,52,5 6,58,59, or 68. These high/intermedi ate risk HPV types are associated with dysplasia and some cervical cancers. [facility] Report Status Final [id number] [facility] 08/23/2005 8:42 EDT 08/30/2005 8:42 EDT Jeannine Little CORE PLACER MICROBIOLOGY - GENER AL ORDERABLES [facility] [address] [place] [address] documented in this encounter Visit Diagnoses Not on filedocumented in this encounter
--- OUTSIDE RECORDS SUMMARY | 2023-12-22 06:34 | XMS_ITS | Encounter Summary ---
Author Organization [facility] Address [address] [place] [address] Care Team Providers Care Boot Repairer Name Role Phone Unavailable Primary Care Provider Unavailabl e Encounter Details Date Type Department Care Team (Late st Contact Info) Description 08/29/2000 Results Only [facility] - Maple conversion [address] [place] [address] [address] [place], [place] [id number] Social History Tobacco Use Types Packs/Day Years [...] Comments HPV DETECTION, HIGH RISK TYPES Routine 08/29/2000 11:45 EDT CYTOPATHOLOGY Routine 08/29/2000 0:00 EDT documented in this encounter Results * HUMAN PAPILLOMA VIRUS DNA TEST (08/29/2000 11:45 EDT) Specimen Description Cervix, ThinPrep vial [facility] Result Negative for HPV types 6,11,16,18,3 1,33,35,39,4 2,43,44,45,5 1,52,56,58,5 9, and 68. [facility] Report Status Final [id number] [facility] 08/29/2000 11:4 5 EDT 09/04/2000 14:13 EDT Mg Mcmahan CNM MICROBIOLOGY - GENER AL ORDERABLES [facility] [address] [place] [address] * CYTOPATHOLOGY (08/29/2000 0:00 EDT) Pathology Report: CYTOPATHOLOGY REPORT Reports generated via electronic interface contain original data; however they are lacking the format of the original report. Caution should be taken when reading/interpreti ng unformatted reports. Name: ? CHRISTIN ALFARO ? Accession #: ? [id number] : ? 1975 (Age: 24) ??F ?Collect Date: ? 08/29/2000 Location: ? [facility] ? Receive Date: ? 08/31/2000 Provider: ?[facility] Copy to: ? Specimen/Source: ?ThinPrep Pap Test, Cervix/Endocervix Last Menstrual Period: ? 09/08/99 Menstrual/Pregnanc y Status: ? Post Previous Gynecologic Pathology: ? VAIN: condyloma acuminata compound melanocytic nevus HSIL: and vulvovaginal lesions Other: ? HPVDX - HPV testing requested regardless of diagnosis on current ThinPrep Pap test. ? SPECIMEN ADEQUACY ? Satisfactory for evaluation. GENERAL CATEGORIZATION ? Within Normal Limits ? Document reviewed and electronically signed by: ? Ryan Langston, BEBE(ASCP) ? Report Date: ??09/01/2000 15:00 End of Report [facility] 08/29/2000 08/31/2000 Mg Mcmahan CNM PATHOLOGY ORDERABLES Performing Organization Address City/State/[place] de Phone Number [facility] [address] [place] [address] documented in this encounter Visit Diagnoses Not on filedocumented in this encounter
--- OUTSIDE RECORDS SUMMARY | 2023-12-22 06:34 | XMS_ITS | Encounter Summary ---
Author Organization [facility] Address [address] [place] [address] Care Team Providers Care Feather Trimmer Name Role Phone Mark Whitman MD Primary Care Provider [phone] Subha Parker Primary Care Provider [phone] Encounter Details Date Type Department Care Team (Late st Contact Info) Description 02/22/2020 Lab Requisition [facility] Pathology & [place] [address] Outr Resulting Lab, Provider Social History Tobacco Use Types Packs/Day Years Used Date Smoking Tobacco: Never Assessed Sex and Gender Information Value Date Recorded Sex Assigned at Not on file Gender Identity Not on file Sexual Orientation Not on file documented as of this encounter Plan of Treatment Not on file documented as of this encounter Procedures Procedure Name Priority Date/Time Associated Diagnosis Comments ZZCOVID-19 TEST [facility] PCR Today 02/21/2020 13:10 EST COVID-19 TESTING Routine 02/21/2020 13:1 0 EST documented in this encounter Results * COVID-19 TEST [facility] PCR (02/21/2020 13:10 EST) Swab ENTIRE NASOPHARYNX / Unknown 02/21/2020 13:10 EST 02/22/2020 21:35 EST Provider Outr Resulting Lab MICROBIOLOGY - GENERAL ORDERABLES [facility] [address] [place] [address] * COVID-19 TESTING (02/21/2020 13:10 EST) COVID-19 rt-PCR Result Negative Negative 02/24/2020 17:45 EST [facility] Comment: Negative results do not preclude 2019-nCoV infection and should not be used as the sole basis for treatment or other patient management decisions. Negative results must be combined with clinical observations, patient history, and epidemiological information. This test was developed and its performance characteristics determined by [facility]. It has not been cleared or approved by the US Food and Drug Administration. FDA does not require this test to go through premarket FDA review. This test is used for clinical purposes. It should not be regarded as investigational or for research. This laboratory is certified under the Clinical Laboratory Improvement Amendments (CLIA) as qualified to perform high complexity clinical laboratory testing. This test is based on the CDC COVID-19 Emergency Use Authorization (EUA) assay, with minor modification as defined by the FDA Performed on the [employer] 7 Flex. Performing Lab [employer] 7 [facility] 02/24/2020 17:45 EST [facility] Swab 02/21/2020 13:1 0 EST 02/22/2020 21:35 EST Provider Outr Resulting Lab MICROBIOLOGY - GENERAL ORDERABLES [facility] [address] [place] [address] documented in this encounter Visit Diagnoses Not on filedocumented in this encounter Care Teams Feather Trimmer Relationship Specialty Start Date End Date Mark Whitman MD [address] [place] [address] PCP - General 01/08/15 12/03/21 Subha Parker FNP [address] [place] [address] PCP - General 12/04/21 documented as of this encounter
--- OUTSIDE RECORDS SUMMARY | 2023-12-22 06:34 | XMS_ITS | Clinical Summary ---
Author Organization [facility] Address [address] [place] [address] Care Team Providers Care Refuge Worker Name Role Phone Subha Parker BARB Primary Care Provider [phone] Social History Tobacco Use Types Packs/Day Years Used Date Smoking Tobacco: Never Assessed Sex and Gender Information Value Date Recorded Sex Assigned at Not on file Gender Identity Not on file Sexual Orientation Not on file Plan of Treatment Health Maintenance Due Date Last Done Comments Hepatitis C Screen 1975 Hepatitis B Vaccine (1 of 3 - 19+ 3-dose series) 09/23 COVID-19 Vaccine ( season) 2022 Care Teams Refuge Worker Relationship Specialty Start Date End Date Subha Parker FNP [address] [place] [phone] PCP - General 12/04/21
--- OUTSIDE RECORDS SUMMARY | 2023-12-22 06:34 | XMS_ITS | Encounter Summary ---
Author Organization [facility] Address [address] [place] [address] Care Team Providers Care Buttoner Name Role Phone Subha Parker BARB Primary Care Provider [phone] Encounter Details Date Type Department Care Team (Late st Contact Info) Description 12/30/2021 Lab Requisition [facility] Pathology & Laboratory Medicine - [address] [address] Zoya Mendosa MD [address] [place] [address] [place] [phone] Encounter for other general examination Social History Tobacco Use Types Packs/Day Years Used Date Smoking Tobacco: Never Assessed Sex and Gender Information Value Date Recorded Sex Assigned at Not on file Gender Identity Not on file Sexual Orientation Not on file documented as of this encounter Plan of Treatment Not on file documented as of this encounter Procedures Procedure Name Priority Date/Time Associated Diagnosis Comments SURGICAL PATHOLOGY Today 12/30/2021 15 :58 EDT Encounter for other general examination documented in this encounter Results * SURGICAL PATHOLOGY (12/30/2021 15:58 EDT) Note to Patient The following pathology results have been interpreted by your pathologist and may be available to you before your health provider has had the opportunity to review them. Please allow time for your provider to receive these results and explore management options, if applicable. 01/03/2022 13:35 EDT [facility] Final Diagnosis A. CERVIX, POLYP, EXCISION: - Benign endocervical polyp with surface erosion and granulation tissue. 01/03/2022 13:35 [facility] Attestation There was significant resident/fellow involvement in the diagnostic evaluation of this case. By the signature below, the attending physician certifies that they have personally conducted a gross and/or microscopic examination of the described specimens and rendered or confirmed the above diagnosis. 01/03/2022 13:35 [facility] at 1335 Clinical History Cervical polyp 01/03/2022 13:35 [facility] Gross Description A. Received in formalin labelled with proper patient identification (initials B, S) and cervical polyp is a single brown-pink rubbery polypoid tissue (3.8 x 1.3 x 1.0 cm). Received in the same specimen container is an aggregate of a minimal amount of translucent mucus and admixed blood clot (0.7 x 0.6 x 0.2 cm). The polypoid tissue is serially sectioned and entirely submitted in A1-A4 and the aggregate is entirely submitted in A5. ELY MYERS 12/31/2021 8:45 01/03/2022 13:35 [facility] Resident/David w: Anabell Granda MD 01/03/2022 13:35 [facility] Performing Lab [facility] 01/03/2022 13:35 [facility] Scanned Images 01/03/2022 13:35 [facility] Tissue ENTIRE WALL OF CERVIX / Unknown 12/30/2021 15:58 EDT 12/30/2021 23:29 EDT Zoya Mendosa MD PATHOLOGY ORDERABLES [facility] [address] [place] [address] documented in this encounter Visit Diagnoses Diagnosis Encounter for other general examination documented in this encounter Care Teams Buttoner Relationship Specialty Start Date End Date Subha Parker FNP [address] [place] [address] [place] [phone] PCP - General 12/04/21 documented as of this encounter
--- OUTSIDE RECORDS SUMMARY | 2023-12-22 06:34 | XMS_ITS | Encounter Summary ---
Author Organization [facility] Address [address] [place] [address] Care Team Providers Care Feedlot Manager Name Role Phone Unavailable Primary Care Provider Unavailabl e Encounter Details Date Type Department Care Team (Late st Contact Info) Description 04/28/2004 Results Only [facility] - Maple conversion [address] [place] [address] Tony Rivera MD [address] [place] [address] Social History Tobacco Use Types Packs/Day Years Used Date Smoking Tobacco: Never Assessed Sex and Gender Information Value Date Recorded Sex Assigned at Not on file Gender Identity Not on file Sexual Orientation Not on file documented as of this encounter Plan of Treatment Not on file documented as of this encounter Procedures Procedure Name Priority Date/Time Associated Diagnosis Comments SURGICAL PATHOLOGY Routine 04/28/2004 0:00 EST documented in this encounter Results * SURGICAL PATHOLOGY (04/28/2004 0:00 EST) Pathology Report: SURGICAL PATHOLOGY REPORT Reports generated via electronic interface contain original data; however they are lacking the format of the original report. Caution should be taken when reading/interpretin g unformatted reports. Name: ? CHRISTNI ALFARO ? Accession #: ? [id number] ? : ? 1975 (Age: 28) ??F ? Collect Date: ? 04/28/2004 ? Location: ? [facility] ? Receive Date: ? 04/28/2004 ? Provider: SHASTA RIVERA MD Copy to: MARIAM CHANEY MD ? Final Pathologic Diagnosis: ? Gastroesophageal junction, biopsy: 1. ?Squamous mucosa with rare intraepithelial eosinophils consistent with reflux esophagitis. 2. ?Fundic-type mucosa with mild chronic gastritis and reactive changes. 3. ?No goblet cell intestinal metaplasia identified. Document reviewed and electronically signed by: LINH BLOOM MD Report ??Date: 04/29/2004 10:12 By the signature above, the attending physician certifies that he/she has personally conducted a gross and/or microscopic examination of the described specimens and rendered or confirmed the above diagnosis. Specimen(s) Received: ? Bx GE junction Clinical History: ? Heartburn, normal EGD Gross Description: ? Received in Hollande' s fixative labeled Brown and bx GE junction is a sandhu-pink 0.2 x 0.2 x 0.2 cm soft tissue fragment. ??The specimen is entirely submitted in one cassette. ??(Sharifa [facility] End of Report [facility] 04/28/2004 04/28/2004 14: 49 EST Tony Rivera MD PATHOLOGY ORDERABLES [facility] [address] [place] [address] documented in this encounter Visit Diagnoses Not on filedocumented in this encounter
--- OUTSIDE RECORDS SUMMARY | 2023-12-22 06:34 | XMS_ITS | Referral Summary ---
Author Organization [facility] Address [address] [place] [address] Care Team Providers Care Director Occupational Name Role Phone Subha Parker BARB Primary Care Provider [phone] Social History Tobacco Use Types Packs/Day Years Used Date Smoking Tobacco: Never Assessed Sex and Gender Information Value Date Recorded Sex Assigned at Not on file Gender Identity Not on file Sexual Orientation Not on file Plan of Treatment Not on file Care Teams Director Occupational Relationship Specialty Start Date End Date Subha Parker FNP [address] [facility] [address] [place] [phone] PCP - General 12/04/21
--- OUTSIDE RECORDS SUMMARY | 2023-12-22 06:34 | XMS_ITS | Encounter Summary ---
Author Organization [facility] Address [address] [place] [address] Care Team Providers Care Implementation Analyst Name Role Phone Mark Whitman MD Primary Care Provider [phone] Subha Parker Primary Care Provider [phone] Encounter Details Date Type Department Care Team (Late st Contact Info) Description 07/09/2020 Lab Requisition [facility] Pathology & Laboratory Medicine - [facility] [address] [place] [address] Outr Resulting Lab, Provider Social History Tobacco [...] Priority Date/Time Associated Diagnosis Comments ZZCOVID-19 TEST [facility] PCR Today 07/09/2020 9:15 EDT COVID-19 TESTING Routine 07/09/2020 9:15 EDT documented in this encounter Results * COVID-19 TEST [facility] PCR (07/09/2020 9:15 EDT) Swab ENTIRE NASOPHARYNX / Unknown 07/09/2020 9:15 EDT 07/09/2020 21:57 EDT Provider Outr Resulting Lab MICROBIOLOGY - GENERAL ORDERABLES [facility] [address] [place] [address] * COVID-19 TESTING (07/09/2020 9:15 EDT) COVID-19 rt-PCR Result Negative Negative 07/10/2020 15:09 EDT [facility] Comment: This test has not been FDA cleared or approved. This test has been authorized by FDA under an EUA for use by authorized laboratories. This test has been authorized only for detection of nucleic acid from 2019-nCoV, not for any other viruses or pathogens. This test is only authorized for the duration of the declaration that circumstances exist justifying the authorization of emergency use of in vitro diagnostic tests for detection and/or diagnosis of 2019-nCoV under section 564(b)(1) of Act, 21 U.S.C ?? 360bbb-3(b) (1), unless the authorization is terminated or revoked sooner. Negative results do not preclude 2019-nCoV infection and should not be used as the sole basis for treatment or other patient management decisions. Negative results must be combined with clinical observations, patient history, and epidemiological information. Testing was performed using the bacilio SARS-CoV-2 assay ([employer] on the Bacilio 6800 System Performing Lab Bacilio 6800 [facility] 07/10/2020 15:09 EDT [facility] Swab 07/09/2020 9:15 EDT 07/09/2020 21:57 EDT Provider Outr Resulting Lab MICROBIOLOGY - GENERAL ORDERABLES [facility] [address] [place] [address] documented in this encounter Visit Diagnoses Not on filedocumented in this encounter Care Teams Implementation Analyst Relationship Specialty Start Date End Date Mark Whitman MD [address] [place] [address] PCP - General 01/08/15 12/03/21 Subha Parker FNP [address] [facility] [address] [place] [address] PCP - General 12/04/21 documented as of this encounter
--- OUTSIDE RECORDS SUMMARY | 2023-12-22 06:34 | XMS_ITS | Encounter Summary ---
Author Organization [facility] Address [address] [place] [address] Care Team Providers Care Pin Ball Machine Mechanic Name Role Phone Unavailable Primary Care Provider Unavailabl e Encounter Details Date Type Department Care Team (Late st Contact Info) Description 08/11/[address] [facility] - Maple conversion [address] [place] [address] [place], [place] [address] Social History Tobacco Use Types Packs/Day Years Used Date Smoking Tobacco: Never Assessed Sex and Gender Information Value Date Recorded Sex Assigned at Not on file Gender Identity Not on file Sexual Orientation Not on file documented as of this encounter Plan of Treatment Not on file documented as of this encounter Procedures Procedure Name Priority Date/Time Associated Diagnosis Comments CYTOPATHOLOGY Routine 08/11/2004 0:00 EDT documented in this encounter Results * CYTOPATHOLOGY (08/11/2004 0:00 EDT) Pathology Report: CYTOPATHOLOGY REPORT Reports generated via electronic interface contain original data; however they are lacking the format of the original report. Caution should be taken when reading/interpreti ng unformatted reports. Name: ? CHRISTIN ALFARO ? Accession #: ? [id number] : ? 1975 (Age: 28) ??F ?Collect Date: ? 08/11/2004 Location: ? [facility] ? Receive Date: ? 08/13/2004 Provider: ?USHA SIMON ARCHER Copy to: ? Specimen/Source: ?ThinPrep Pap Test, Cervix/Endocervix Last Menstrual Period: ? 06/03/04 Menstrual/Pregnanc y Status: ? Previous Gynecologic Pathology: ? VAIN: Condyloma acuminata compound melanocytic nerves HSIL: Vulvar vaginal lesion HPV: - Other: ? HPVA - HPV testing requested if ASC-US on the current ThinPrep Pap test. ? SPECIMEN ADEQUACY ? Satisfactory for Evaluation - transformation zone component present GENERAL CATEGORIZATION ? Negative for Intraepithelial Lesion or Malignancy INTERPRETATION ? Shift in emilie present suggestive of bacterial vaginosis. ? Document reviewed and electronically signed by: ? BEBE Barriga(ASCP) ? Report Date: ??08/23/2004 14:48 End of Report [facility] 08/11/2004 08/13/2004 Usha Garces CNM PATHOLOGY ORDERABLES [facility] [address] [place] [address] documented in this encounter Visit Diagnoses Not on filedocumented in this encounter
--- OUTSIDE RECORDS SUMMARY | 2023-12-22 06:34 | XMS_ITS | Encounter Summary ---
Author Organization [facility] Address [address] [place] [address] Care Team Providers Care Customer Project Manager Name Role Phone Unavailable Primary Care Provider Unavailabl e Encounter Details Date Type Department Care Team (Late st Contact Info) Description 03/02/2005 Results Only [facility] - Maple conversion [address] [place] [address] Raul Gallegos MD [address] [place], [place] [id number] Social History Tobacco Use Types Packs/Day Years Used Date Smoking Tobacco: Never Assessed Sex and Gender Information Value Date Recorded Sex Assigned at Not on file Gender Identity Not on file Sexual Orientation Not on file documented as of this encounter Plan of Treatment Not on file documented as of this encounter Procedures Procedure Name Priority Date/Time Associated Diagnosis Comments SURGICAL PATHOLOGY Routine 03/02/2005 0:00 EST documented in this encounter Results * SURGICAL PATHOLOGY (03/02/2005 0:00 EST) Pathology Report: SURGICAL PATHOLOGY REPORT Reports generated via electronic interface contain original data; however they are lacking the format of the original report. Caution should be taken when reading/interpreti ng unformatted reports. Name: ? CHRISTIN ALFARO ? Accession #: ? [id number] ? : ? 1975 (Age: 29) ??F ? Collect Date: ? 03/02/2005 ? Location: ? [facility] ? Receive Date: ? 03/02/2005 ? Provider: RAUL GALLEGOS MD Copy to: MARIAM CHANEY MD ? Final Pathologic Diagnosis: A. ?Fallopian tube, left, segmental excision: 1. ?Complete cross section of fallopian tube. B. ?Fallopian tube, right, segmental excision: 1. ?Complete cross section of fallopian tube. Document reviewed and electronically signed by: Chris Pearl MD Report ??Date: 03/03/2005 15:35 By the signature above, the attending physician certifies that he/she has personally conducted a gross and/or microscopic examination of the described specimens and rendered or confirmed the above diagnosis. Specimen(s) Received: A. ?Left tube, fallopian B. ?Right tube, fallopian Clinical History: ? Pt desires sterilization Gross Description: ? Received in formalin labelled Brown and left tube fallopian is a short, cylindrical, firm segment of tissue which measures 1.9 cm in length by 0.4 cm in diameter and which has a smooth, sandhu-pink serosa. ??Two guest experience representative cross sections are submitted as (A). Received in formalin labelled Brown and R tube fallopian is a short, cylindrical, firm segment of tissue which measures 1.2 cm in length by 0.4 cm in diameter and which has a smooth, sandhu-pink serosa. ??Two guest experience representative cross sections are submitted as (B). ??(Naomi Gross)/[facility] End of Report [facility] 03/02/2005 03/02/2005 15: 02 EST Raul Gallegos MD PATHOLOGY ORDERABLES Performing Organization Address City/State/[facility] Co de Phone Number [facility] [address] [place] [address] documented in this encounter Visit Diagnoses Not on filedocumented in this encounter
--- OUTSIDE RECORDS SUMMARY | 2023-12-22 06:34 | XMS_ITS | Encounter Summary ---
Author Organization [facility] Address [address] [place] [address] Care Team Providers Care Treasury Accountant Name Role Phone Unavailable Primary Care Provider Unavailabl e Encounter Details Date Type Department Care Team (Late st Contact Info) Description 09/17/2002 Results Only [facility] - Maple conversion [address] [place] [address] Jeannine Little, [facility] [address] [place] [address] [place] [phone] Social History Tobacco Use Types Packs/Day Years Used Date Smoking Tobacco: Never Assessed Sex and Gender Information Value Date Recorded Sex Assigned at Not on file Gender Identity Not on file Sexual Orientation Not on file documented as of this encounter Plan of Treatment Not on file documented as of this encounter Procedures Procedure Name Priority Date/Time Associated Diagnosis Comments CYTOPATHOLOGY Routine 09/17/2002 0:00 EDT documented in this encounter Results * CYTOPATHOLOGY (09/17/2002 0:00 EDT) Pathology Report: CYTOPATHOLOGY REPORT Reports generated via electronic interface contain original data; however they are lacking the format of the original report. Caution should be taken when reading/interpreti ng unformatted reports. Name: ? CHRISTIN ALFARO ? Accession #: ? [id number] : ? 1975 (Age: 26) ??F ?Collect Date: ? 09/17/2002 Location: ? [facility] ? Receive Date: ? 09/19/2002 Provider: ?JEANNINE LITTLE PEDIATRIC OCCUPATIONAL THERAPIST Copy to: ? Specimen/Source: ?ThinPrep Pap Test, Cervix/Endocervix Last Menstrual Period: ? 08/29/02 Previous Gynecologic Pathology: ? VAIN: Condyloma acuminata compound melanocytic nerves HSIL: Vulvarvaginal lesions ? SPECIMEN ADEQUACY ? Satisfactory for Evaluation - transformation zone component present GENERAL CATEGORIZATION ? Negative for Intraepithelial Lesion or Malignancy ? Document reviewed and electronically signed by: ? BEBE Barriga(ASCP) ? Report Date: ??09/23/2002 15:34 End of Report [facility] 09/17/2002 09/19/2002 Jeannine Little PEDIATRIC OCCUPATIONAL THERAPIST PATHOLOGY ORDERABLES [facility] [address] [place] [address] documented in this encounter Visit Diagnoses Not on filedocumented in this encounter
--- OUTSIDE RECORDS SUMMARY | 2023-12-22 06:34 | XMS_ITS | Encounter Summary ---
Author Organization [facility] Address [address] [place] [address] Care Team Providers Care Seo Manager Name Role Phone Subha Parker BARB Primary Care Provider [phone] Encounter Details Date Type Department Care Team (Late st Contact Info) Description 12/31/2021 Lab Requisition [facility] Pathology & Laboratory Medicine - [address] [address] Zoya Mendosa MD [address] [place] [address] [place] [phone] Encounter for other general examination Social History [...] Procedure Name Priority Date/Time Associated Diagnosis Comments PAP TEST Today 12/30/2021 15:58 EDT Encounter for other general examination HPV DNA DETECTION WITH GENOTYPING, PCR Today 12/30/2021 15:58 EDT Encounter for other general examination documented in this encounter Results * HUMAN PAPILLOMAVIRUS (HPV) DETECTION-HIGH RISK TYPES (12/30/2021 15:58 EDT) HPV other High Risk types, PCR Negative Negative 01/13/2022 7:18 EST [facility] Comment:No E6 or E7 mRNA is detected from HPV types 16,18,31,33,35,39,45,51,52,56,58,59,66, and 68 by sql data architect mediated amplification. Papanicolaou smear specimen (specimen) CERVIX UTERI STRUCTURE / Unknown 12/30/2021 15:58 EDT 01/11/2022 14:06 EST Zoya Mendosa MD MICROBIOLOGY - GENER AL ORDERABLES [facility] [address] [place] [address] * PAP TEST (12/30/2021 15:58 EDT) Specimens A. Cervix and/or Endocervix , ThinPrep Imaging System with Manual Evaluation 01/13/2022 7:18 [facility] Specimen Adequacy Satisfactory for Evaluation - transformation zone component present 01/13/2022 7:18 [facility] General Categorization Negative for intraepithelial lesion or malignancy 01/13/2022 7:18 [facility] Attestation . 01/13/2022 7:18 [facility] at 0718 Clinical History See below 01/14/20 7:18 [facility] HPV The result for the Human Papillomavirus (HPV) Detection-High Risk Types is Negative. No E6 or E7 mRNA is detected from HPV types 16,18,31,33,35,39 ,45,51,52,56,58,5 9,66, and 68 by sql data architect mediated amplification.Diana ting was performed on specimen [id number] and was resulted on 01/13/2022 0713 EST by PAMELA, LAB INSTRUMENT RESULTS IN 01/13/2022 7:18 [facility] Performing Lab [facility] 01/13/2022 7:18 [facility] Scanned Images 01/13/2022 7:18 [facility] Papanicolaou smear specimen (specimen) CERVIX UTERI STRUCTURE / Unknown 12/30/2021 15:58 EDT 12/31/2021 12:03 EDT Zoya Mendosa MD PATHOLOGY ORDERABLES [facility] [address] [place] [address] documented in this encounter Visit Diagnoses Diagnosis Encounter for other general examination documented in this encounter Care Teams Seo Manager Relationship Specialty Start Date End Date Subha Parker FNP [address] [phone] PCP - General 12/04/21 documented as of this encounter
--- OUTSIDE RECORDS SUMMARY | 2023-12-22 06:34 | XMS_ITS | Encounter Summary ---
Author Organization [facility] Address [facility] [place] [address] Care Team Providers Care Auto Electrical Technician Name Role Phone Unavailable Primary Care Provider Unavailabl e Encounter Details Date Type Department Care Team (Latest Contact Info) Description 09/26/2017 9:14 PM EDT - 09/26/2017 11:59 PM EDT Hospital [place] [address] Discharge Disposition: Home Social History Tobacco Use Types Packs/Day Years Used Date Smoking Tobacco: Never Assessed Sex and Gender Information Value Date Recorded Sex Assigned at Not on file Gender Identity Not on file Sexual Orientation Not on file documented as of this encounter Plan of Treatment Not on file documented as of this encounter Procedures Procedure Name Priority Date/Time Associated Diagnosis Comments SURGICAL PATHOLOGY REPORT Routine 09/26/2017 1:46 PM EDT documented in this encounter Results * Surgical Pathology Report (09/26/2017 1:46 PM EDT) Final Diagnosis [id number] ? Location: [facility] The signing pathologist has (i) examined the relevant preparation(s) for the specimen(s) and (ii) rendered or confirmed the diagnosis(es). . 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 pylori-like organism seen on H &E stain C - Distal esophagus, ?? biopsy: Esophageal squamous mucosa with reflux esophagitis D - Sigmoid colon, ??biopsy: Colonic mucosa with hyperplastic mucosa, consistent with hyperplastic polyp, no colitis present CR-PX Electronically signed by: ??Cuong Alfaro MD, I Verified: ??09/29/2017 ?Pathologist Performed at: ??-[facility] Dept. of [place]ology, [place], [place] CLINICAL INFORMATION Specimen Submitted: A - Duodenum bx B - Antrum bx C - Distal esophagus bx D - Sigmoid bx Clinical History and Diagnosis: Epigastric discomfort, history diverticulitis Referring Identifier: ?? (not provided) Report to: Aidee Leon SPECIMEN PROCESSING A - Labeled/Fixative: Duodenum biopsy, formalin. Quantity/Size: Five, 0.3-0.4 cm. Tissue Description: ??Soft, yellow-sandhu tissue ??. Sections/Processi ng: (T1) B - Labeled/Fixative: Antrum biopsy, formalin. Quantity/Size: Three, 0.2-0.3 cm. Tissue Description: ??Soft, sandhu-pink tissue ??. Sections/Processi ng: (T1) C - Labeled/Fixative: Distal esophagus, formalin. Quantity/Size: Two, 0.1 and 0.3 cm. Tissue Description: ??Soft, alves-white tissue ??. Sections/Processi ng: (T1) D - Labeled/Fixative: Sigmoid biopsy, formalin. Quantity/Size: Two, 0.2-0.3 cm. . SPECIMEN PROCESSING Tissue Description: ??Soft, yellow-sandhu tissue ??. Sections/Processi ng: (T1) ??ejr 09/29/2017 9:33 AM EDT [facility] GI Biopsy 09/26/2017 1:46 PM EDT 09/26/2017 1:46 PM EDT GI Biopsy 09/26/2017 1:46 PM EDT 09/26/2017 1:46 PM EDT GI Biopsy 09/26/2017 1:46 PM EDT 09/26/2017 1:46 PM EDT GI Biopsy 09/26/2017 1:46 PM EDT 09/26/2017 1:46 PM EDT Saqib Cheng DO PATHOLOGY/CYT OLOGY ORDERABLES Performing Organization Address City/State/[facility] Co de Phone Number [facility] [place] [address] documented in this encounter Visit Diagnoses Not on filedocumented in this encounter
--- OUTSIDE RECORDS SUMMARY | 2023-12-22 06:34 | XMS_ITS | Encounter Summary ---
Author Organization [facility] Address [address] [place] [address] Care Team Providers Care Coat Room Attendant Name Role Phone Unavailable Primary Care Provider Unavailabl e Encounter Details Date Type Department Care Team (Late st Contact Info) Description 08/30/2001 Results Only [facility] - Maple conversion [address] [place] [address] Telma Guy, VEDA Social History Tobacco Use Types Packs/Day Years Used Date Smoking Tobacco: Never Assessed Sex and Gender Information Value Date Recorded Sex Assigned at Not on file Gender Identity Not on file Sexual Orientation Not on file documented as of this encounter Plan of Treatment Not on file documented as of this encounter Procedures Procedure Name Priority Date/Time Associated Diagnosis Comments CYTOPATHOLOGY Routine 08/30/2001 0:00 EDT documented in this encounter Results * CYTOPATHOLOGY (08/30/2001 0:00 EDT) Pathology Report: CYTOPATHOLOGY REPORT Reports generated via electronic interface contain original data; however they are lacking the format of the original report. Caution should be taken when reading/interpreti ng unformatted reports. Name: ? CHRISTIN ALFARO ? Accession #: ? [id number] : ? 1975 (Age: 25) ??F ?Collect Date: ? 08/30/2001 Location: ? [facility] ? Receive Date: ? 09/03/2001 Provider: ?TELMA GUY DRAMATIC DIRECTOR Copy to: ? Specimen/Source: ?ThinPrep Pap Test, Cervix/Endocervix Last Menstrual Period: ? 07/05 Previous Gynecologic Pathology: ? VAIN: Condyloma acuminata compuond melanocytic nevres HSIL: vuluovaginal lesions HPV: testing Negative ? SPECIMEN ADEQUACY ? Satisfactory for Evaluation - transformation zone component present GENERAL CATEGORIZATION ? Negative for Intraepithelial Lesion or Malignancy ? Document reviewed and electronically signed by: ? BEBE Barriga(ASCP) ? Report Date: ??09/10/2001 14:27 End of Report [facility] 08/30/2001 09/03/2001 Telma Guy NP PATHOLOGY ORDERABLES [facility] [address] [place] [address] documented in this encounter Visit Diagnoses Not on filedocumented in this encounter
--- OUTSIDE RECORDS SUMMARY | 2023-12-22 06:34 | XMS_ITS | Encounter Summary ---
Author Organization [facility] Address [address] [place] [address] Care Team Providers Care Psychologist Name Role Phone Unavailable Primary Care Provider Unavailabl e Encounter Details Date Type Department Care Team (Late st Contact Info) Description 05/29/2000 Results Only [facility] [address] [place] [address] Raul Gallegos MD [address] [place], [place] [id number] Social History Tobacco Use Types Packs/Day Years Used Date Smoking Tobacco: Never Assessed Sex and Gender Information Value Date Recorded Sex Assigned at Not on file Gender Identity Not on file Sexual Orientation Not on file documented as of this encounter Plan of Treatment Not on file documented as of this encounter Procedures Procedure Name Priority Date/Time Associated Diagnosis Comments SURGICAL PATHOLOGY Routine 05/29/2000 0:00 EST documented in this encounter Results * SURGICAL PATHOLOGY (05/29/2000 0:00 EST) Pathology Report: SURGICAL PATHOLOGY REPORT Reports generated via electronic interface contain original data; however they are lacking the format of the original report. Caution should be taken when reading/interpreti ng unformatted reports. Name: ? CHRISTIN ALFARO ? Accession #: ? [id number] ? : ? 1975 (Age: 24) ??F ? Collect Date: ? 05/29/2000 ? Location: ? [facility] ? Receive Date: ? 05/30/2000 ? Provider: RAUL GALLEGOS MD Copy to: RICO PATEL MD ? Final Pathologic Diagnosis: A. ?Skin of thigh, right, excision: 1. ?Verruca vulgaris. B. ?Vulvovaginal lesions, biopsies, fragmented: 1. 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 3. ?Compound melanocytic nevus. ??See comment. Comment: ? The second specimen labelled vulvovaginal lesions contains numerous fragments of tissue. ??In several sections, there is full thickness epithelial atypia present at the edge of the tissue. ??The margins of these lesions cannot be assessed due to the fragmented nature of the specimen. ??Well-developed condyloma acuminata is also seen in the background. ??Several sections also show features of a compound melanocytic nevus. ??This case has been reviewed at intradepartmental consensus conference on 05/31/2000 at 2 pm. ??(Dr. Garcia)/ljn Document reviewed and electronically signed by: CHELSEA GARCIA MD Report ??Date: 05/31/2000 15:26 By the signature above, the attending physician certifies that he/she has personally conducted a gross and/or microscopic examination of the described specimens and rendered or confirmed the above diagnosis. Specimen(s) Received: A. ?R thigh lesion B. ?Vulvovaginal lesions Clinical History: ? Vulvovaginal condylomatous growth Gross Description: ? Received in formalin labelled Brown and #1 R thigh lesion is a shave biopsy of skin which measures 0.8 x 0.3 x 0.2 cm. ??The cutaneous surface is sandhu-white and irregular. ??The specimen is submitted intact as (A). Received in formalin labelled Brown and #2 vulvovaginal lesions are multiple fragments of irregular papillomatous and verrucous skin which range in size from 2.5 x 2.5 x 2.0 cm to 0.5 x 0.5 x 0.3 cm. ??The specimens are sectioned and are submitted entirely as (B1) through (B6). ??(Dr. Zheng)/tmg End of Report BAYRON SMITH 05/29/2000 05/30/2000 8:5 4 EST Raul Gallegos MD PATHOLOGY ORDERABLES Performing Organization Address City/State/[facility] Co de Phone Number BAYRON SMITH [address] [place] [address] documented in this encounter Visit Diagnoses Not on filedocumented in this encounter
--- OUTSIDE RECORDS SUMMARY | 2023-12-22 06:34 | XMS_ITS | Encounter Summary ---
Author Organization [facility] Address [address] [place] [address] Care Team Providers Care Mixer Operator Name Role Phone Mark Whitman MD Primary Care Provider [phone] Encounter Details Date Type Department Care Team (Late st Contact Info) Description 02/01/2017 Results Only [facility] [phone] Anatoly Olson, [facility]- [address] [place] [address] Social History Tobacco Use Types Packs/Day Years Used Date Smoking Tobacco: Never Assessed Sex and Gender Information Value Date Recorded Sex Assigned at Not on file Gender Identity Not on file Sexual Orientation Not on file documented as of this encounter Plan of Treatment Not on file documented as of this encounter Procedures Procedure Name Priority Date/Time Associated Diagnosis Comments PAP TEST- RESULT ONLY Routine 02/01/2017 0:00 EST documented in this encounter Results * PAP TEST- RESULT ONLY (02/01/2017 0:00 EST) Pathology Report: CYTOPATHOLOGY REPORT Reports generated via electronic interface contain original data; however they are lacking the format of the original report. Caution should be taken when reading/interpreti ng unformatted reports. Name: ? CHRISTIN ALFARO ? Accession #: ? [id number] ? : ? 1975 (Age: 41) ??F ?Collect Date: ? 02/01/2017 ? Location: ? [facility] ? Receive Date: ? 02/02/2017 ? Provider: ANATOLY MILLER TOOL CHECKER-BC Copy to: ? Final Report SPECIMEN ADEQUACY ? Satisfactory for Evaluation - transformation zone component absent GENERAL CATEGORIZATION ? Negative for Intraepithelial Lesion or Malignancy ?? Last Menstrual Period: 01/24/2017 Specimen/Source: ??Pap Test, Cervix, ThinPrep Imaging System with manual evaluation Document reviewed and electronically signed by: ? Patricia Junior, [facility](ASCP) ? Report ??Date: 02/13/2017 10:10 HPV with Pap Test ? Date Ordered: ? 02/13/2017 ? Status: ?? Signed Out ?Date Complete: ? 02/14/2017 ? By: ??System Interface ? Date Reported: ? 02/14/2017 ? Interpretation RESULT: Negative for HPV. No E6 or E7 mRNA is detected from HPV types 16,18,31,33,35, 39,45,51,52,56,58, 59,66, and 68 by commercial teller mediated amplification. Comments Document reviewed and electronically signed by: ? System Interface ? Report date: 02/14/2017 By the signature above, the attending physician certifies that he/she has personally conducted a gross and/or microscopic examination of the described specimens and rendered or confirmed the above diagnosis. End of Report [facility] 02/01/2017 02/02/2017 Anatoly Barajas Neftalymamadou TOOL CHECKER-BC PATHOLOGY [facility] [address] [place] [address] documented in this encounter Visit Diagnoses Not on filedocumented in this encounter Care Teams Mixer Operator Relationship Specialty Start Date End Date Mark Whitman MD [address] [place] [address] PCP - General 01/08/15 12/03/21 documented as of this encounter
== END 2023-12-22 06:23 | disposition home or self-care (01) ==
LOC: ER 06:32
PROVIDERS: Emergency Provider Student in an Organized Health Care Education/Training Program; PCP Nurse Practitioner Family
DX: K59.00 Constipation, unspecified (principal)
CPT/HCPCS: 99283

== ENCOUNTER 2024-09-26 10:21 | Outpatient (REF) | payer BC, SELFPAY ==
[2024-09-26 15:18] LABS: ALT 38 U/L (14-59); AST 20 U/L (15-37); Albumin 3.9 g/dL (3.4-5.0); Alkaline Phosphatase 69 U/L (46-116); Anion Gap 8.8 mmol/L (3-11); BUN 15 mg/dL (7-18); Bilirubin, Total 0.3 mg/dL (0.2-1.0); CO2 25.2 mmol/L (21.0-32.0); Calcium 9.7 mg/dL (8.5-10.1); Chloride 103 mmol/L (98-107); Estimated GFR 90.27 (mL/min/1.73m2); Glucose 100 mg/dL (74-106); Potassium 4.6 mmol/L (3.5-5.1); Sodium 137 mmol/L (136-145); Total Protein 7.3 g/dL (6.4-8.2)
== END 2024-09-26 10:22 | disposition home or self-care (01) ==
LOC: NCHCN 10:21
PROVIDERS: PCP Nurse Practitioner Family; Visit Provider Nurse Practitioner Family
DX: K59.09 Other constipation (principal)
CPT/HCPCS: 80053

== ENCOUNTER 2024-10-15 01:00 | Outpatient (CLI) | payer BC, SELFPAY ==
[2024-10-15] MEDS: Barium Sulfate 2% W/V-Berry Smoothie 450 ML BTL PO ×2 (07:46→07:47)
[2024-10-15] MEDS: Normal Saline Flush 10 ML SYR IVP (09:50)
[2024-10-15] MEDS: Normal Saline - Diluent 50 ML VIAL IJ (09:51)
[2024-10-15] MEDS: Omnipaque 350 MG/ML 100 ML BTL IJ (09:52)
--- NOTE | 2024-10-15 10:20 | DI.CT_ITS ---
Exam(s) CT ABDOMEN PELVIS W EXAM: CT ABDOMEN PELVIS W CLINICAL HISTORY: Chronic constipation, K59.09. TECHNIQUE: Imaging Protocol: Axial computed tomography images with coronal and sagittal reformatted images were created and reviewed CONTRAST MATERIAL: Intravenous: Omnipaque 350 Contrast volume:100 ml Oral: yes COMPARISON: CT CT ABDOMEN PELVIS W from 01/03/2022 FINDINGS: ABDOMEN and PELVIS: Lung Bases: No acute findings. Liver: Enlarged at 22 cm in length. Decreased attenuation consistent with moderate hepatic steatosis. No suspicious mass. Gallbladder and biliary tract: No radiodense calculus. No wall thickening or pericholecystic fluid. No biliary dilation. Pancreas: Normal density. No abnormal calcifications or inflammatory process. No evidence of mass. Spleen: Normal. Kidneys: Normal size, contour and axis. No radiodense stones. No obstructive uropathy. No suspicious masses seen. Adrenal glands: No masses seen. Vasculature: Abdominal aorta non-dilated. Mild atherosclerotic changes. Soft tissues: Unremarkable. Bladder: No gross wall thickening. No calculi.No focal mass. Bowel: Administered oral contrast extends to the level of the rectum. There is diverticulosis of the lower descending and sigmoid colon no evidence of diverticulitis. There is a normal quantity of fecal material. No obstruction. No bowel wall thickening. Appendix normal. Peritoneal cavity: No ascites. No focal collection. No mesenteric inflammatory response. No free air. Bones: Degenerative disc changes at L5-S1. Mild scoliosis. Reproductive organs: Unremarkable retroverted uterus. Lymph nodes: No pathologically enlarged lymph nodes. IMPRESSION:: No acute abnormality in the abdomen or pelvis. Diverticulosis. No evidence of diverticulitis. RADIATION DOSE DELIVERED: 922.15mGy.cm Total DLP DATA REPOSITORY: All CT scans at this facility are submitted to the National Radiology Data Registry (NRDR) Dose Index Registry (DIR) with the [employer] (ACR). RADIATION OPTIMIZATION: All CT scans at this facility use at least one of these dose optimization techniques: automated exposure control; mA and/or kV adjustment per patient size (includes targeted exams where dose is matched to clinical indication); or iterative reconstruction.
== END 2024-10-15 01:20 ==
LOC: DI 01:00
PROVIDERS: PCP Nurse Practitioner Family; Visit Provider Nurse Practitioner Family
DX: K57.30 Diverticulosis of large intestine without perforation or abscess without bleeding (principal)
CPT/HCPCS: 74177; J3490

== ENCOUNTER 2025-01-16 13:46 | Outpatient (REF) | payer BC, SELFPAY ==
[2025-01-16 20:40] LABS: Abs Immature Grans 0.03 10^3/uL (0.0-0.06); HCT 37.4 % (36.0-46.0); HGB 12.0 g/dL (11.2-15.7); Immature Grans % 0.3 %; MCH 26.9 pg (27.0-33.0); MCHC 32.1 % (32.0-36.0); MCV 84 fL (80-95); MPV 11.8 fL (8.0-11.0); Platelet Count 291 10^3/uL (130-400); RBC 4.46 10^6/uL (3.93-5.22); RDW 14.5 % (11.7-14.6); RDW-SD 44.1 fL; WBC 8.69 10^3/uL (4.4-10.8)
[2025-01-16 20:55] LABS: Iron 28 ug/dL (50-170); Total Iron Binding Capacity 386 ug/dL (250-425); Transferrin Sat 7 % (15-50)
[2025-01-16 20:56] LABS: ALT 27 U/L (10-49); AST 21 U/L (<34); Albumin 4.6 g/dL (3.4-5.0); Alkaline Phosphatase 65 U/L (46-116); Anion Gap 6.4 mmol/L (3-11); BUN 14 mg/dL (9-23); Bilirubin, Total 0.30 mg/dL (0.2-1.2); CO2 25.6 mmol/L (20.0-31.0); Calcium 9.6 mg/dL (8.3-10.6); Chloride 108 mmol/L (98-107); Cholesterol 219 mg/dL (<200); Glucose 92 mg/dL (74-106); HDL Cholesterol 48 mg/dL (>40); Potassium 4.3 mmol/L (3.5-5.1); Sodium 140 mmol/L (136-145); Total Protein 7.6 g/dL (5.7-8.2)
[2025-01-16 20:59] LABS: TSH (W/Ref FT4) 1.09 uIU/mL (0.55-4.78)
== END 2025-01-16 13:47 | disposition home or self-care (01) ==
LOC: NCHCN 13:46
PROVIDERS: PCP Nurse Practitioner Family; Visit Provider Nurse Practitioner Family
DX: Z00.00 Encounter for general adult medical examination without abnormal findings (principal); R53.82 Chronic fatigue, unspecified
CPT/HCPCS: 80053; 80061; 83540; 83550; 84443; 85025

== ENCOUNTER → 2025-02-10 00:35 | Outpatient (CLI) | payer BC, SELFPAY ==
--- NOTE | 2025-02-10 | DI.RAD_ITS ---
Exam(s) XR ANKLE LT COMPLETE EXAM: XR ANKLE LT COMPLETE CLINICAL HISTORY: PAIN LT ANKLE M25.572 CHRONIC PAIN G89.29. TECHNIQUE: 2D digital imaging was performed. COMPARISON: No exams were available for comparison FINDINGS: 3 views No evidence of acute fracture nor widening the ankle mortise. Talar dome unremarkable. There are no obvious degenerative changes in the tibiotalar and subtalar joints. No pes planus. No osseous tarsal coalition nor osseous lesions. Small enthesophyte on the posterior calcaneus Achilles insertion site is noted. There is no calcification in the plantar fascia. IMPRESSION: No acute osseous findings in the ankle. DATA REPOSITORY: RADIATION DOSE DELIVERED:
--- NOTE | 2025-02-10 | DI.MAMMO_ITS ---
Exam(s) MG MAMMO DIAGNOSTIC BI US BREAST LT LIMITED EXAM: MAMMO DIAGNOSTIC BI CLINICAL HISTORY: MASS LUMP LEFT BREAST N63.20. COMPARISON: 2021 TECHNIQUE: Craniocaudal and mediolateral oblique Full Field Digital Mammography views of both breasts with Computer Aided Diagnosis followed by Tomosynthesis and left breast ultrasound. FINDINGS: Mammography/Tomosynthesis: Masses: None seen. Architectural Distortion: None seen. Microcalcifications: No suspicious pleomorphic-type are seen. Skin Thickening/Nipple Retraction: None. Left breast US: Echotexture: Normal appearance of the glandular tissue. Shadowing: No suspicious foci. Cyst: None. Solid lesions: None seen. Ductal dilation: None. IMPRESSION: 1. No evidence of malignancy is noted. 2. Unless there is more urgent need, follow-up screening mammography is recommended, as per [employer] [employer] guidelines. BI-RADS Category 1 - Negative Breast Density - Category A - The breast are almost entirely fatty. Breast density Category C or D implies that the patient has dense breast tissue. Dense breast tissue can make it harder to find cancer on a mammogram. Dense breast tissue is also associated with an increased risk of breast cancer. This information about the result of the mammogram report was provided to the patient to raise their awareness. Use this report when you speak with the patient about their risks for breast cancer, which includes their family history. At that time, you may recommend additional screening tests (Ultrasound or MRI) as these tests may add significant information. A negative radiographic report should not delay biopsy if a dominant or clinically suspicious mass is present. Up to ten percent of cancers are not identified on mammography. A negative report may reinforce clinical impression. Adenosis and dense breasts may obscure an underlying neoplasm. False positive reports average 6 to 10%. Patient will receive a letter notifying them of these results.
== END ==
PROVIDERS: PCP Nurse Practitioner Family; Visit Provider Nurse Practitioner Family
DX: N63.25 Unspecified lump in the left breast, overlapping quadrants (principal); M25.572 Pain in left ankle and joints of left foot; G89.29 Other chronic pain
CPT/HCPCS: 76642; 77062; 77066; 73610; G0279